=== PATIENT | female | born 1950 | race Hispanic/Latino ===

== ENCOUNTER 2018-10-08 05:45 | Inpatient (IN) | payer MEDICARE, OTHER ==
[2018-10-08] MEDS ORDERED: Albuterol 0.5% Inhal Sol (2.5 mg/0.5 ml) UD IH STA (05:59)
[2018-10-08] MEDS ORDERED: Magnesium Sulfate 1 gm in D5W 1 GM/100 ML BAG IVPB ONE (06:01)
[2018-10-08] MEDS ORDERED: Albuterol 0.083% Inhal Sol (2.5 mg/3 mL) UD INH STA ×2 (06:03→06:50)
[2018-10-08] MEDS ORDERED: Albuterol-Ipratrop 3 mg / 0.5 (3 ml) UD ONE (06:06)
[2018-10-08 06:27] LABS: BASO # 0.01 K/mm3 (0.0-2.0); BASO % 0.2 % (0.0-3.0); EOS # 0.5 (0.0-0.7); EOS % 12.6 % (1.5-5.0); GRAN # 2.21 (1.4-6.5); GRAN % 52.7 % (50.0-68.0); HEMOGLOBIN 13.8 g/dL (12.0-16.0); LYMPH # 1.2 (1.2-3.4); LYMPH % 27.6 % (22.0-35.0); MEAN CELL VOLUME 89.5 fl (80.0-105.0); MEAN CORPUSCULAR HEMOGLOBIN 30.1 pg (25.0-35.0); MEAN CORPUSCULAR HGB CONC 33.6 g/dl (31.0-37.0); MEAN PLATELET VOLUME 10.2 fl (7.0-11.0); MONO # 0.3 (0.1-0.6); MONO % 6.9 % (1.0-6.0); RBC 4.59 10^6/uL (3.5-6.1); RED CELL DISTRIBUTION WIDTH 13.1 % (11.5-14.5); WHITE BLOOD COUNT 4.2 10^3/uL (4.5-11.0)
[2018-10-08 06:35] LABS: INR 1.03; PARTIAL THROMBOPLASTIN TIME 30.3 Seconds (25.1-36.5); PROTHROMBIN TIME 11.9 SECONDS (9.4-12.5); VENOUS BLOOD GAS BASE EXCESS 0.2 mmol/L (0.0-2.0); VENOUS BLOOD GAS PO2 42 mm/Hg (30-55); VENOUS BLOOD PH 7.33 (7.32-7.43)
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
[2018-10-08 06:40] LABS: ALB/GLOB RATIO 1.1 (1.1-1.8); ALBUMIN 4.3 g/dL (3.0-4.8); ALT/SGPT 16 U/L (7-56); AST/SGOT 26 U/L (14-36); BLOOD UREA NITROGEN 24 mg/dL (7-21); CALCIUM 9.4 mg/dL (8.4-10.5); GFR NON-AFRICAN AMERICAN > 60
[2018-10-08 06:48] LABS: B-TYPE NATRIURETIC PEPTIDE 125 pg/mL (0-450)
--- NOTE | 2018-10-08 07:05 | ED PDOC ---
Physical Exam - Physical Exam Narrative Physical Exam (Text): 10/08/18 08:14 Gen: NAD, cooperative, well appearing, non-toxic. CV: (+) S1S2, RRR, no M/G/R LUNGS: Decreased breath sounds. Expiratory wheezing. ext: no cyanosis or edema Vital Signs Reviewed: Yes Vital Signs Temp Pulse Resp BP Pulse Ox 10/08/18 05:55 20 96 10/08/18 05:49 98.9 F 92 H 24 153/85 H 90 L Temperature: Afebrile Blood Pressure: Hypertensive Pulse: Regular Respiratory Rate: Normal Appearance: Positive for: Well-Appearing, Non-Toxic, Comfortable Pain Distress: None Mental Status: Positive for: Alert and Oriented X 3 - Systems Exam Mouth: Present: Moist Mucous Membranes Medical Decision Making ED Course and Treatment: 10/08/18 07:03 Case endorsed to me by Dr. Jamil pending reevaluation. Dr. Jamil reviewed pt's CXR, EKG, and Labs. 10/08/18 08:05 Upon reevaluation, patient's symptoms have not improved after multiple treatments. Patient does not feel like she could go home. 10/08/18 08:26 Patient's PCP is on the blue list. Call put out to Dr. Holm. 10/08/18 08:30 CXR reviewed by me, shows infultrate in rt lower lobe. Report still pending. 10/08/18 09:10 Pt noted her second doctor is Dr. Moulton. Call placed out to Dr. Moulton. 10/08/18 09:[address] Moulton, who is aware and agrees with plan. Accepts pt to her service. Wants call placed to Dr. Salazar. - Lab Interpretations Lab Results: 10/08/18 06:00 10/08/18 06:00 Lab Results 10/08/18 06:00: Sodium 142, Potassium 3.7, Chloride 106, Carbon Dioxide 27, Anion Gap 12, BUN 24 H, Creatinine 0.7, Est GFR ( Amer) > 60, Est GFR (Non-Af Amer) > 60, Random Glucose 115 H, Calcium 9.4, Magnesium 1.9, Total Bilirubin 0.3, AST 26, ALT 16, Alkaline Phosphatase 61, NT-Pro-B Natriuret Pep 125, Total Protein 8.1, Albumin 4.3, Globulin 3.8, Albumin/Globulin Ratio 1.1 10/08/18 06:00: PT 11.9, INR 1.03, APTT 30.3 10/08/18 06:00: WBC 4.2 L, RBC 4.59, Hgb 13.8, Hct 41.1, MCV 89.5, MCH 30.1, MCHC 33.6, RDW 13.1, Plt Count 278, MPV 10.2, Gran % 52.7, Lymph % (Auto) 27.6, Bound[place] % (Auto) 6.9 H, Eos % (Auto) 12.6 H, Baso % (Auto) 0.2, Gran # 2.21, Lymph # (Auto) 1.2, Boundary # (Auto) 0.3, Eos # (Auto) 0.5, Baso # (Auto) 0.01 - RAD Interpretation Radiology Orders: 10/08/18 06:00 CHEST PORTABLE [RAD] Stat - Medication Orders Current Medication Orders: Discontinued Medications Albuterol Sulfate (Albuterol 0.5% Inhal Tamara (2.5 Mg/0.5 Ml) Ud) 2.5 mg IH STAT STA Stop: 10/08/18 06:00 Last Admin: 10/08/18 06:14 Dose: 2.5 mg Albuterol Sulfate (Albuterol 0.083% Inhal Tamara (2.5 Mg/3 Ml) Ud) 2.5 mg INH STAT STA Stop: 10/08/18 06:04 Last Admin: 10/08/18 06:14 Dose: 2.5 mg Albuterol Sulfate (Albuterol 0.083% Inhal Tamara (2.5 Mg/3 Ml) Ud) 2.5 mg INH STAT STA Stop: 10/08/18 06:51 Last Admin: 10/08/18 07:00 Dose: 2.5 mg Magnesium Sulfate/Dextrose (Magnesium Sulfate 1 Gm/100 Ml D5w) 1 gm in 100 mls @ 100 mls/hr IVPB ONCE ONE Stop: 10/08/18 07:00 Last Admin: 10/08/18 06:14 Dose: 100 mls/hr eMAR Start Stop Document 10/08/18 06:14 JOReji (Rec: 10/08/18 06:14 JOReji [id number]) Intravenous Solution Start Date 10/08/18 Start Time 06:14 End Date 10/08/18 End time 07:14 Total Infusion Time 60 Methylprednisolone (Solu-Medrol) 125 mg IVP STAT STA Stop: 10/08/18 06:01 Last Admin: 10/08/18 06:13 Dose: 125 mg IVP Administration Document 10/08/18 06:13 CHRISTOPHER (Rec: 10/08/18 06:13 CHRISTOPHER [id number]) Charges for Administration # of IVP Administrations 1 - Scribe Statement The provider has reviewed the documentation as recorded by the Scribe Catie Verduzco All medical record entries made by the Scribe were at my direction and personally dictated by me. I have reviewed the chart and agree that the record accurately reflects my personal performance of the history, physical exam, medical decision making, and the department course for this patient. I have also personally directed, reviewed, and agree with the discharge instructions and disposition. Disposition/Present on Arrival - Present on Arrival Any Indicators Present on Arrival: No History of DVT/PE: No History of Uncontrolled Diabetes: No Urinary Catheter: No History of Decub. Ulcer: No History Surgical Site Infection Following: None - Disposition Have Diagnosis and Disposition been Completed?: Yes Diagnosis: Asthma exacerbation, COPD exacerbation Disposition: HOSPITALIZED Disposition Time: 09:15 Patient Plan: Admission, Telemetry Patient Problems: Current Active Problems Problem Status Onset Asthma exacerbation Acute COPD exacerbation Acute Condition: [facility]
[2018-10-08] MEDS ORDERED: Azithromycin 500MG/NS 250ml 500 MG/250 ML BAG IVPB STA (08:27)
[2018-10-08] MEDS: Albuterol-Ipratrop 3 mg / 0.5 (3 ml) UD IH SCH ×3 (09:23→10:00)
--- NOTE | 2018-10-08 09:30 | CARD ---
APPROVED REPORT Date of service: 10/08/2018 EKG Measurement Heart [id number] <Conclusion> Normal sinus rhythm Left axis deviation/LAHB RVCD PRWP No change
--- NOTE | 2018-10-08 11:17 | RAD ---
Date of service: 10/08/2018 HISTORY: Shortness of breath. COMPARISON: 07/23/2016 FINDINGS: LUNGS: No active pulmonary disease. PLEURA: No significant pleural effusion identified, no pneumothorax apparent. CARDIOVASCULAR: No atherosclerotic calcification present No radiographic findings to suggest acute or significant cardiovascular disease. OSSEOUS STRUCTURES: No significant abnormalities. VISUALIZED UPPER ABDOMEN: Normal. OTHER FINDINGS: None. IMPRESSION: No active disease. No significant interval change compared to the prior examination(s).
[2018-10-08] MEDS: Levalbuterol 1.25 MG/3 ML Inhal Soln UD IH SCH ×2 (14:04→20:34)
[2018-10-08] MEDS: cefTRIAXone 1 gm 1 GM/100 ML BAG IVPB SCH (15:03)
[2018-10-08 15:59] VITALS: BMI 22.3
[2018-10-08] MEDS ORDERED: Pneumococcal 23-Valent Vaccine IM ONE (15:59)
[2018-10-08] MEDS ORDERED: Influenza Vaccine 60 mcg/0.5 mL SYR (4YR UP) IM ONE (15:59)
[2018-10-08] MEDS: MethylPREDNISolone 40 mg Vial IV SCH ×2 (16:26→18:21)
[2018-10-09] MEDS: Levalbuterol 1.25 MG/3 ML Inhal Soln UD IH SCH ×4 (03:22→20:40)
[2018-10-09] MEDS: Albuterol-Ipratrop 3 mg / 0.5 (3 ml) UD IH PRN ×2 (05:18→23:53)
[2018-10-09] MEDS: Pantoprazole 40 mg EC Tab PO SCH (05:30)
[2018-10-09 06:13] LABS: URINE BILIRUBIN NEGATIVE (NEGATIVE); URINE BLOOD MODERATE (NEGATIVE); URINE GLUCOSE (UA) NEGATIVE (NEGATIVE); URINE LEUKOCYTE ESTERASE NEGATIVE Leu/uL (NEGATIVE); URINE PROTEIN NEGATIVE mg/dL (<30 mg/dL); URINE UROBILINOGEN 0.2 E.U./dL (<1 E.U./dL)
[2018-10-09 06:27] LABS: URINE APPEARANCE CLEAR (CLEAR); URINE COLOR YELLOW (YELLOW)
[2018-10-09 06:49] LABS: URINE BACTERIA OCC /hpf; URINE EPITHELIAL CELLS 0 - 2 /hpf (0-5); URINE WBC 0 - 2 /hpf (0-6)
[2018-10-09] MEDS: cefTRIAXone 1 gm 1 GM/100 ML BAG IVPB SCH (10:06)
[2018-10-09] MEDS: MethylPREDNISolone 40 mg Vial IV SCH (10:07)
[2018-10-09 11:17] LABS: ALB/GLOB RATIO 1.1 (1.1-1.8); ALBUMIN 4.2 g/dL (3.0-4.8); ALT/SGPT 19 U/L (7-56); AST/SGOT 26 U/L (14-36); BLOOD UREA NITROGEN 22 mg/dL (7-21); CALCIUM 9.3 mg/dL (8.4-10.5); GFR NON-AFRICAN AMERICAN > 60
[2018-10-09 11:40] LABS: BASO # 0.01 K/mm3 (0.0-2.0); BASO % 0.1 % (0.0-3.0); EOS % 0.3 % (1.5-5.0); GRAN # 5.33 (1.4-6.5); GRAN % 74.9 % (50.0-68.0); HEMOGLOBIN 13.3 g/dL (12.0-16.0); LYMPH # 1.2 (1.2-3.4); LYMPH % 16.3 % (22.0-35.0); MONO # 0.6 (0.1-0.6); MONO % 8.4 % (1.0-6.0); RBC 4.43 10^6/uL (3.5-6.1); RED CELL DISTRIBUTION WIDTH 13.4 % (11.5-14.5); WHITE BLOOD COUNT 7.1 10^3/uL (4.5-11.0)
--- NOTE | 2018-10-09 12:31 | CON ---
DATE: 10/09/2018 PULMONARY CONSULTATION HISTORY OF PRESENT ILLNESS: Ms. Saldana is a 68-year-old female with a longstanding history of bronchial asthma. She sees a primary doctor who is being covered by a second primary doctor who is being covered by Dr. Gold. The patient is anxious that no one knows her care. We have spent some time discussing her case. The patient states that her troubles go back to 09/17 when she had progressive shortness of breath. She was seen in the emergency room and given oral corticosteroids. She has not quite improved over the course of the month, she did not seek additional help. Yesterday she complained of progressive shortness of breath and wheezing. She took her bronchodilators as usual and came to the emergency room for further evaluation and treatment. The patient's chart has been reviewed. The patient was given corticosteroids and antibiotics as discussed above. She is still having episodes of shortness of breath. Since admission last night, the patient states that she is somewhat improved. There is no fever or chills. She does have cough but no expectoration. There is no chest pain. PAST MEDICAL HISTORY: Includes chronic obstructive pulmonary disease, mainly of asthmatic etiology. The patient has a past medical history of hepatitis C, of rib fractures. FAMILY HISTORY: Unknown. SOCIAL HISTORY: The patient does not smoke herself, but is exposed to a large amount of secondhand smoke. No occupational or travel history. No alcohol use. ALLERGIES: RASPBERRIES. HOME MEDICATIONS: Hand nebulizer therapy, fexofenadine, oral cephalosporin, oral corticosteroid. REVIEW OF SYSTEMS: No fever. All negative other than that described above; shortness of breath, cough, exacerbation of bronchial asthma. PHYSICAL EXAMINATION GENERAL: The patient is resting in bed, comfortable, no acute distress. VITAL SIGNS: Afebrile. Temperature 98.6, pulse 80, respiratory rate 18, blood pressure 140/70, O2 sat 96% on supplemental oxygen. NECK: Supple. No jugular venous distention. No bruit. HEART: Regular rhythm. S1, S2 without murmur, gallop or rub. CHEST: Bilateral wheezes noted. Minimal rhonchi noted throughout both lung leon. No rales appreciated. ABDOMEN: Soft. Bowel sounds normoactive without mass, guarding, rebound. No organomegaly. EXTREMITIES: Reveal no clubbing, cyanosis or edema. NEUROLOGIC: Reveals no focal findings. SKIN: Warm but dry. No rash or excoriation. Lymphadenopathy is not present. NEUROLOGIC: No focal findings. LABORATORY STUDIES: Upon admission show a white count of 4200, hemoglobin 13.8, hematocrit 41.1, platelet count 278,000. Sodium 142, potassium 3.7, chloride 106, BUN 24, creatinine 0.7, blood sugar 115. BNP 125. PT/PTT within normal limits. Chest x-ray: No acute changes, no infiltrate or pulmonary vascular congestion. EKG: Sinus rhythm, nonspecific ST-T wave changes. CLINICAL IMPRESSION 1. Respiratory insufficiency. 2. Bronchial asthma. 3. Chronic obstructive pulmonary disease. We will adjust medications accordingly. Once the patient has been stabilized off corticosteroids an IgA and IgE and eosinophil count must be done to rule out eosinophilic asthma. We will need to obtain old records and speak to her primary medical doctor to get a more precise history. We will be happy to follow closely with you once the patient is stabilized. At this point in time we will continue on the current medication orders which include DuoNeb as necessary, ceftriaxone, methylprednisolone 30 mg three times a day, and levalbuterol/Xopenex. We will follow closely with you and decide on the need for further intervention. Thank you. Roberto Breaux MD
--- NOTE | 2018-10-09 13:54 | PN ---
DATE: 10/09/2018 Please note that a white count of 4200 was noted on admission with an eosinophil count of 12.6%. 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 Once she is stabilized, she needs to be followed by Pulmonary in order to obtain such medication. We will discuss this at a further date once the patient is stabilized. IgE level has been requested as well. Roberto Breaux MD
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
[2018-10-10] MEDS: Albuterol-Ipratrop 3 mg / 0.5 (3 ml) UD IH PRN (05:07)
[2018-10-10] MEDS: Budesonide 0.5 mg/2 ml Inhal Susp UD IH SCH ×2 (07:43→21:45)
[2018-10-10] MEDS: Levalbuterol 1.25 MG/3 ML Inhal Soln UD IH SCH ×3 (07:43→21:45)
--- NOTE | 2018-10-10 08:50 | PN ---
DATE: 10/10/2018 SUBJECTIVE: The patient appears comfortable this morning. She is not short of breath at rest. PHYSICAL EXAMINATION: VITAL SIGNS: Temperature 98.6, pulse 79, respirations 18, blood pressure 107/57. Oxygen saturation on nasal cannula is 95%. HEENT: Normocephalic, atraumatic. NECK: No JVD. CARDIOVASCULAR: Positive S1, S2. No S3 gallop. LUNGS: Decreased breath sounds at the bases. Minimal rhonchi. Minimal wheezing. EXTREMITIES: No clubbing, cyanosis or edema. Calves are nontender to palpation. GI: Abdomen is soft, nontender and nondistended. Bowel sounds are positive. SKIN: No acute rash. NEUROLOGIC: Exam limited at the present time. IMPRESSION: 1. Acute bronchitis. 2. Chronic obstructive pulmonary disease. 3. Bronchial asthma. 4. Hypertension. PLAN: The patient appears comfortable this morning. She is not short of breath at rest. She does state to feeling much better overall. I did discuss the case with the night nurse at length. The night nurse stated the patient had a good night. On physical exam, there is mild bronchospasm present. In addition, there is a mild increase in the alveolar-arterial gradient. I will continue the current nebulizer treatments and low-dose intravenous steroids foe now. However, I will also add inhaled Pulmicort this morning. The patient is also on oral antibiotic therapy. There are no temperatures noted. There is no leukocytosis. Clinical status of the patient certainly appears improved. I will discuss the above with the attending physician. Obie Springer MD MTDSandra
--- NOTE | 2018-10-10 09:09 | HP ---
DATE OF EXAM: 10/08/2018 HISTORY OF PRESENT ILLNESS: The patient is 68 years old. She states on 09/17/2018, when she was babysitting her grandson in [place], she started to have shortness of breath that was her usual asthma. When her shortness of breath got worse, ambulance was called and she was taken to the local hospital in [place]. She remained there for a day or two. She was discharged home on cefuroxime 500 twice a day and she was told she has touch of pneumonia, so she finished her antibiotics. Two days ago, she had to attend a when she came out with . When she reached home, she started to have cough, congestion, shortness of breath again it had got worse to the point she was unable to breathe, so daughter called ambulance and she was brought to emergency room. PAST MEDICAL HISTORY: She has significant past medical history of COPD and asthmatic bronchitis. She was admitted with similar complaint in 2016. Denies any fever or chills. Denies any nausea or vomiting. No abdominal pain. ALLERGIES: SHE IS ALLERGIC TO RASPBERRIES. MEDICATIONS AT HOME: She is on Advair, she is on fluticasone, and she takes Melanie as needed. SOCIAL HISTORY: Denies smoking, drinking, and no alcohol use. REVIEW OF SYSTEMS: Significant for being anxious, short of breath and complain of tracheal mucus. PHYSICAL EXAMINATION: GENERAL: She is awake, alert, oriented, able to communicate, has mild shortness of breath. VITAL SIGNS: She is afebrile. Pulse 105, respirations 24, blood pressure 140/74. LUNGS: Bilateral expiratory rhonchi. HEART: S1 and S2 audible. ABDOMEN: Soft and nontender. No rebound. No guarding. NEUROLOGIC: The patient is awake, alert, oriented, communicative. LABORATORY EXAM: WBC is 4.2, hemoglobin 13, hematocrit 41 and platelets 278. PT 11.9, INR is 1.03. Chemistry; sodium 142, potassium 3.7, chloride 106, CO2 of 27, BUN 24, creatinine 0.7, blood sugar 115. ASSESSMENT: 1. Chronic obstructive pulmonary disease exacerbation. 2. Asthmatic bronchitis. 3. History of hypertension. 4. History of hepatitis C. 5. Hyperlipidemia. PLAN: We will start the patient on nebulizer treatment. We will start her on IV steroid. We will put her on GI prophylaxis. We will start her on Rocephin. We will evaluate the patient in a.m. and pulmonary consult has been requested. Angel Luis Moulton MD
[2018-10-10] MEDS: Cefpodoxime (Vantin) 200 mg Tab PO SCH ×2 (09:24→21:46)
[2018-10-10] MEDS ORDERED: MethylPREDNISolone 40 mg Vial IV SCH ×2 (10:00→18:00)
--- NOTE | 2018-10-10 13:46 | CT ---
Date of service: 10/10/2018 PROCEDURE: CT Chest without contrast HISTORY: sob COMPARISON: 07/24/2016 TECHNIQUE: Contiguous axial images were obtained through the chest without intravenous contrast enhancement. Sagittal and coronal reconstructions were performed. Radiation dose: Total exam DLP = 195.87 mGy-cm. This CT exam was performed using one or more of the following dose reduction techniques: Automated exposure control, adjustment of the mA and/or kV according to patient size, and/or use of iterative reconstruction technique. FINDINGS: LUNGS: There is a small 5 mm nodule in the right upper lobe anteriorly. There is also some nodular scarring at the junction of the right major fissure and lateral pleura. The lungs are otherwise clear MEDIASTINUM: Unremarkable thoracic aorta. No aneurysm. Normal sized heart. Main pulmonary artery unremarkable. No vascular congestion. Mildly enlarged mediastinal lymph nodes are seen. There is a 12 mm pretracheal lymph node. No aortic atherosclerotic calcification. PLEURA: No pleural fluid. No pneumothorax. BONES: No fracture. No destructive lesion. UPPER ABDOMEN: Grossly unremarkable. OTHER FINDINGS: None. IMPRESSION: No acute intrathoracic findings
--- NOTE | 2018-10-10 16:04 | PN ---
DATE: 10/10/2018 SUBJECTIVE: The patient is 68-year-old, seen and examined. She has cough, congestion, get short of breath even walking to the bathroom. PHYSICAL EXAMINATION: VITAL SIGNS: She is afebrile, pulse 75, respiration 20 and blood pressure 113/70. LUNGS: Bilateral expiratory rhonchi, more pronounced posteriorly. HEART: S1 and S2, audible. ABDOMEN: Soft and nontender. No rebound. No guarding. NEUROLOGICAL: The patient is awake, alert, oriented, able to communicate and ambulatory. EXTREMITIES: Bilateral leg no edema. LABORATORY DATA: There is no new lab available today. Blood cultures are negative. ASSESSMENT: 1. Chronic obstructive pulmonary disease, exacerbation. 2. Asthmatic bronchitis. 3. Bronchospasm. 4. Hypertension. PLAN: I will increase her steroid to 30 every 12 hours. I also ordered for CT of the chest to see if there is any underlying pneumonia. We will followup the patient in a.m. Angel Luis Moulton MD
[2018-10-11] MEDS: Levalbuterol 1.25 MG/3 ML Inhal Soln UD IH SCH ×4 (03:45→21:08)
[2018-10-11] MEDS: Budesonide 0.5 mg/2 ml Inhal Susp UD IH SCH ×2 (07:39→21:08)
--- NOTE | 2018-10-11 08:16 | PN ---
DATE: 10/11/2018 SUBJECTIVE: The patient appears very comfortable this morning. She is not short of breath at rest. PHYSICAL EXAMINATION: VITAL SIGNS: (Last noted in the computer): Temperature 97, pulse 75, respirations 18/20, blood pressure 113/70. Oxygen saturation on nasal cannula is 97%. HEENT: Normocephalic, atraumatic. No JVD. CARDIOVASCULAR: Positive S1, S2. No S3 gallop. LUNGS: Improved breath sounds at the bases. Very minimal/much less rhonchi. No wheezing. EXTREMITIES: No clubbing, cyanosis or edema. Calves are nontender to palpation. GASTROINTESTINAL: Abdomen is soft, nontender and nondistended. Bowel sounds are positive. SKIN: No acute rash. NEUROLOGIC: Exam limited at the present time. PERTINENT LABORATORY DATA: CAT scan of the chest was done yesterday and reviewed. There is a very small (5 mm) nodule in the right upper lobe anteriorly. There is also some nodular scarring near the right major fissure. The lungs are otherwise clear. There is no significant lymphadenopathy.. IMPRESSION: 1. Acute bronchitis. 2. Chronic obstructive pulmonary disease. 3. Bronchial asthma. 4. Small pulmonary nodule, right upper lobe. PLAN: The patient appears very comfortable this morning. She is not short of breath at rest. She does state to feeling much better overall. I did discuss the case with the night nurse at length. The night nurse stated that the patient had a very good night, but does get very anxious at times. On physical exam, the patient's bronchospasm continues to resolve. In addition, the alveolar-arterial gradient also continues to resolve. I will continue the current nebulizer treatments and decrease the intravenous steroids this morning. The patient also remains on oral antibiotic therapy. There are no temperatures noted. There is no leukocytosis. Clinical status of the patient is certainly improved - compared to the initial presentation. I will discuss the above with the attending physician. Obie Springer MD MTDSandra
[2018-10-11] MEDS: MethylPREDNISolone 40 mg Vial IVP SCH ×2 (09:33→21:25)
[2018-10-11] MEDS: Cefpodoxime (Vantin) 200 mg Tab PO SCH ×2 (09:33→21:25)
--- NOTE | 2018-10-11 19:11 | PN ---
DATE: 10/11/2018 SUBJECTIVE: The patient is a 68-year-old, seen and examined, sitting in chair, still complains of cough, complains of difficulty swallowing at time with big bolus or hard food and make her choke. PHYSICAL EXAMINATION: VITAL SIGNS: She is afebrile, pulse 80, respirations 18, and blood pressure 129/71. LUNGS: Bilateral fair airflow. Few expiratory rhonchi posteriorly. HEART: S1 and S2 audible. ABDOMEN: Soft and nontender. No rebound. No guarding. NEUROLOGIC: The patient is awake, alert, oriented, and communicative. EXTREMITIES: Moves all extremities. LABORATORY DATA: There is no new lab available. CT scan of the chest done that shows no acute intrathoracic findings. ASSESSMENT: 1. Chronic obstructive pulmonary disease exacerbation. 2. Asthmatic bronchitis. 3. Pharyngitis. 4. History of hypertension. PLAN: We will continue the patient on steroids. Continue antibiotics. I will get swallowing evaluation because the patient complaint of intermittent choking with certain foods and also add Mucomyst, so she can better. Get swallowing eval and add Mucomyst. Angel Luis Moulton MD
[2018-10-11] MEDS: Acetylcysteine 20% Inhal Soln (4ml) IH SCH (21:08)
[2018-10-12] MEDS: Levalbuterol 1.25 MG/3 ML Inhal Soln UD IH SCH ×5 (00:41→21:08)
[2018-10-12] MEDS: Acetylcysteine 20% Inhal Soln (4ml) IH SCH ×3 (07:55→21:08)
[2018-10-12] MEDS: Budesonide 0.5 mg/2 ml Inhal Susp UD IH SCH ×2 (07:56→21:08)
--- NOTE | 2018-10-12 09:40 | PN ---
DATE: 10/12/2018 PULMONARY NOTE SUBJECTIVE: The patient appears very comfortable at rest. She is not short of breath. PHYSICAL EXAMINATION: VITAL SIGNS: (Last noted in the computer): Temperature is 98.0, pulse 77, respirations 18, blood pressure 133/88 and oxygen saturation on nasal cannula is 92%. HEENT: Normocephalic and atraumatic. No JVD. CARDIOVASCULAR: Positive S1 and S2. No S3 gallop. LUNGS: Minimal/less rhonchi. No wheezing. EXTREMITIES: No clubbing, cyanosis or edema. Calves are nontender to palpation. GI: Abdomen is soft, nontender and nondistended. Bowel sounds are positive. SKIN: No acute rash. NEUROLOGIC: Exam limited at the present time. IMPRESSION: 1. Acute bronchitis. 2. Chronic obstructive pulmonary disease. 3. Bronchial asthma. 4. Small pulmonary nodule - right upper lobe. PLAN: The patient appears very comfortable this morning. She is not short of breath at rest. She is less dyspneic on exertion. She does state to feeling much better overall. On physical exam, her bronchospasm continues to slowly resolve. However, there remains a mild increase in the alveolar-arterial gradient. I will continue the current nebulizer treatments and low-dose intravenous steroids (decreased yesterday) for now. Clinical status of the patient is significantly improved - compared to the initial presentation. However, it does appear that her chronic obstructive pulmonary disease may be advanced. I would like to obtain a PFT when she is over this exacerbation. I will discuss the above with the attending physician. Obie Springer MD DEREK
[2018-10-12] MEDS: MethylPREDNISolone 40 mg Vial IVP SCH ×2 (10:07→21:25)
[2018-10-12] MEDS: Cefpodoxime (Vantin) 200 mg Tab PO SCH ×2 (10:09→21:25)
[2018-10-12] MEDS: Fluticasone Nasal 50 mcg/Spray NS SCH (13:45)
[2018-10-12] MEDS ORDERED: Acetylcysteine 20% Inhal Sol (30ml) IH SCH (14:00)
--- NOTE | 2018-10-12 15:58 | CP.PCM.APN ---
Subjective - Date & Time of Evaluation Date of Evaluation: 10/12/18 Time of Evaluation: 11:00 - Subjective Subjective: patient seen and examined, observed to be walking across the room, no dyspnea noted, States feels like phlegm after coughing episodes remain in her throat. Denied any dysphagia, ate full breaknfast without difficulty. Per nurse, King tte, heard patient wheezing earlier. Patients states her breathing feels much better. Review of Systems - Constitutional Constitutional: As Per HPI - Respiratory Respiratory: Cough, Pain with Coughing Objective - Vital Signs/Intake and Output Vital Signs (last 24 hours): Temp Pulse Resp BP Pulse Ox 98.3 F 76 18 131/83 96 10/12/18 14:00 10/12/18 14:00 10/12/18 14:00 10/12/18 14:00 10/12/18 14:00 Intake and Output: 10/12/18 10/12/18 06:59 18:59 Intake Total 840 Balance 840 - Medications Medications: Current Medications Acetaminophen (Tylenol 325mg Tab) 650 mg PO Q6H PRN PRN Reason: Fever >100.4 F Acetylcysteine (Acetylcysteine 20%) 4 ml IH TIDRESP [facility] Last Admin: 10/12/18 13:37 Dose: 4 ml Albuterol/Ipratropium (Duoneb 3 Mg/0.5 Mg (3 Ml) Ud) 3 ml IH Q2H PRN PRN Reason: Shortness of Breath Last Admin: 10/10/18 05:07 Dose: 3 ml Budesonide (Pulmicort Respules) 0.5 mg IH [id number] [facility] Last Admin: 10/12/18 07:56 Dose: 0.5 mg Cefpodoxime Proxetil (Vantin) 200 mg PO Q12 [facility] Last Admin: 10/12/18 10:09 Dose: 200 mg Fluticasone Propionate (Flonase) 1 actuation NS DAILY [facility] Last Admin: 10/12/18 13:45 Dose: 50 mcg Levalbuterol HCl (Xopenex) 1.25 mg IH [id number] [facility] Last Admin: 10/12/18 13:37 Dose: 1.25 mg Methylprednisolone (Solu-Medrol) 20 mg IVP Q12 [facility] Last Admin: 10/12/18 10:07 Dose: 20 mg Ondansetron HCl (Zofran Inj) 4 mg IVP Q6H PRN PRN Reason: Nausea/Vomiting Pantoprazole Sodium (Protonix Ec Tab) 40 mg PO 0630 [facility] Last Admin: 10/09/18 05:30 Dose: 40 mg - Labs Labs: 10/09/18 10:50 10/09/18 10:50 PT 11.9 SECONDS (9.4-12.5) 10/08/18 06:00 INR 1.03 10/08/18 06:00 APTT 30.3 Seconds (25.1-36.5) 10/08/18 06:00 - Constitutional Appears: Well, Non-toxic, No Acute Distress - Head Exam Head Exam: NORMAL INSPECTION - Eye Exam Eye Exam: Normal appearance Pupil Exam: NORMAL ACCOMODATION - ENT Exam ENT Exam: Mucous Membranes Moist, Normal Exam - Neck Exam Neck Exam: Full ROM - Respiratory Exam Respiratory Exam: Clear to Ausculation Bilateral, NORMAL BREATHING PATTERN - Cardiovascular Exam Cardiovascular Exam: REGULAR RHYTHM, +S1, +S2 - GI/Abdominal Exam GI & Abdominal Exam: Soft, Normal Bowel Sounds - Rectal Exam Rectal Exam: Deferred - Extremities Exam Extremities Exam: Full ROM, Normal Inspection - Back Exam Back Exam: Full ROM, NORMAL INSPECTION - Neurological Exam Neurological Exam: Alert, Normal Gait, Oriented x3 - Psychiatric Exam Psychiatric exam: Normal Affect, Normal Mood - Skin Skin Exam: Dry, Intact, Normal Color, Warm Assessment and Plan - Assessment and Plan (Free Text) Assessment: Impressions Chest X-Ray 10/08/18 06:00 IMPRESSION: No active disease. No significant interval change compared to the prior examination(s). Chest CT 10/10/18 12:28 IMPRESSION: No acute intrathoracic findings Laboratory Results WBC 7.1 10^3/uL (4.5-11.0) D 10/09/18 10:50 RBC 4.43 10^6/uL (3.5-6.1) 10/09/18 10:50 Hgb 13.3 g/dL (12.0-16.0) 10/09/18 10:50 Hct 40.3 % (36.0-48.0) 10/09/18 10:50 MCV 91.0 fl (80.0-105.0) 10/09/18 10:50 MCH 30.0 pg (25.0-35.0) 10/09/18 10:50 MCHC 33.0 g/dl (31.0-37.0) 10/09/18 10:50 RDW 13.4 % (11.5-14.5) 10/09/18 10:50 Plt Count 315 10^3/uL (120.0-450.0) 10/09/18 10:50 MPV 10.0 fl (7.0-11.0) 10/09/18 10:50 Gran % 74.9 % (50.0-68.0) H 10/09/18 10:50 Lymph % (Auto) 16.3 % (22.0-35.0) L 10/09/18 10:50 [place] % (Auto) 8.4 % (1.0-6.0) H 10/09/18 10:50 Eos % (Auto) 0.3 % (1.5-5.0) L 10/09/18 10:50 Baso % (Auto) 0.1 % (0.0-3.0) 10/09/18 10:50 Gran # 5.33 (1.4-6.5) 10/09/18 10:50 Lymph # (Auto) 1.2 (1.2-3.4) 10/09/18 10:50 [place] # (Auto) 0.6 (0.1-0.6) 10/09/18 10:50 Eos # (Auto) 0.0 (0.0-0.7) 10/09/18 10:50 Baso # (Auto) 0.01 K/mm3 (0.0-2.0) 10/09/18 10:50 ESR 50 mm/hr (0.0-20.0) H 10/09/18 10:50 PT 11.9 SECONDS (9.4-12.5) 10/08/18 06:00 INR 1.03 10/08/18 06:00 APTT 30.3 Seconds (25.1-36.5) 10/08/18 06:00 pO2 42 mm/Hg (30-55) 10/08/18 06:00 VBG pH 7.33 (7.32-7.43) 10/08/18 06:00 VBG pCO2 51.0 (40-60) 10/08/18 06:00 VBG HCO3 26.9 mmol/l (21-28) 10/08/18 06:00 VBG Total CO2 28.5 mmol.L (22-28) H 10/08/18 06:00 VBG O2 Sat (Calc) 77.4 % (40-65) H 10/08/18 06:00 VBG Base Excess 0.2 mmol/L (0.0-2.0) 10/08/18 06:00 VBG Potassium 3.7 mmol/L (3.6-5.2) 10/08/18 06:00 Sodium 140.0 mmol/L (132-148) 10/08/18 06:00 Chloride 105.0 mmol/L (98-107) 10/08/18 06:00 Glucose 117 mg/dl (65-105) H 10/08/18 06:00 Lactate 1.2 mmol/L (0.7-2.1) 10/08/18 06:00 FiO2 21.0 % 10/08/18 06:00 Sodium 140 mmol/L (132-148) 10/09/18 10:50 Potassium 4.1 mmol/L (3.6-5.0) 10/09/18 10:50 Chloride 105 mmol/L (98-107) 10/09/18 10:50 Carbon Dioxide 27 mmol/L (21-33) 10/09/18 10:50 Anion Gap 12 (10-20) 10/09/18 10:50 BUN 22 mg/dL (7-21) H 10/09/18 10:50 Creatinine 0.6 mg/dl (0.7-1.2) L 10/09/18 10:50 Est GFR ( Amer) > 60 10/09/18 10:50 Est GFR (Non-Af Amer) > 60 10/09/18 10:50 Random Glucose 101 mg/dL (70-110) 10/09/18 10:50 Calcium 9.3 mg/dL (8.4-10.5) 10/09/18 10:50 Magnesium 1.9 mg/dL (1.7-2.2) 10/08/18 06:00 Total Bilirubin 0.3 mg/dL (0.2-1.3) 10/09/18 10:50 AST 26 U/L (14-36) 10/09/18 10:50 ALT 19 U/L (7-56) 10/09/18 10:50 Alkaline Phosphatase 50 U/L (38-126) 10/09/18 10:50 NT-Pro-B Natriuret Pep 125 pg/mL (0-450) 10/08/18 06:00 Total Protein 7.9 g/dL (5.8-8.3) 10/09/18 10:50 Albumin 4.2 g/dL (3.0-4.8) 10/09/18 10:50 Globulin 3.7 gm/dL 10/09/18 10:50 Albumin/Globulin Ratio 1.1 (1.1-1.8) 10/09/18 10:50 Venous Blood Potassium 3.7 mmol/L (3.6-5.2) 10/08/18 06:00 Urine Color Yellow (YELLOW) 10/09/18 05:00 Urine Appearance Clear (CLEAR) 10/09/18 05:00 Urine pH 6.0 (4.7-8.0) 10/09/18 05:00 Ur Specific [place] 1.025 (1.005-1.035) 10/09/18 05:00 Urine Protein Negative mg/dL (<30 mg/dL) 10/09/18 05:00 Urine Glucose (UA) Negative mg/dL (NEGATIVE) 10/09/18 05:00 Urine Ketones Negative mg/dL (NEGATIVE) 10/09/18 05:00 Urine Blood Moderate (NEGATIVE) H 10/09/18 05:00 Urine Nitrate Negative (NEGATIVE) 10/09/18 05:00 Urine Bilirubin Negative (NEGATIVE) 10/09/18 05:00 Urine Urobilinogen 0.2 E.U./dL (<1 E.U./dL) 10/09/18 05:00 Ur Leukocyte Esterase Negative Radha/uL (NEGATIVE) 10/09/18 05:00 Urine RBC 2 - 5 /hpf (0-2) H 10/09/18 05:00 Urine WBC 0 - 2 /hpf (0-6) 10/09/18 05:00 Ur Epithelial Cells 0 - 2 /hpf (0-5) 10/09/18 05:00 Urine Bacteria Occ /hpf (NONE) 10/09/18 05:00 IgE 1871 kU/L (<ut=457) H 10/09/18 10:50 68 y/o F with PMHx of asthma presents with increased SOB upon arrival, admitted with COPD exac, and bronchitis. Pt reports she had woke up in the morning with difficulty breathing & SOB. She had tried her home inhaler prior to arrival, which did not provide adequate relief. She had taken a home nebulizer treatment the night before, and antibiotic at home, with no relief, admitted for further workup and treatment. Plan: 1. COPD exacerbation improved per full stack web developer, recommends to continue duoneb treatment until tommorow, and if remains improved by tommorow, will consider clearance for DC per covering full stack web developer. recommends checkigng Oxygen saturations, 96% today on room air. Will continue to monitor clinical status and follow closely, anticipate DC home tommorow .
--- NOTE | 2018-10-12 17:30 | PN ---
DATE: 10/12/2018 SUBJECTIVE: The patient is a 68-year-old, seen and examined, ambulating, seems to be doing a little better. She states Mucomyst helped her a lot, less cough and congestion. PHYSICAL EXAMINATION: VITAL SIGNS: She is afebrile, pulse 68, respirations 18, and blood pressure 117/68. LUNGS: Bilateral occasional expiratory rhonchi. HEART: S1 and S2 audible. ABDOMEN: Soft and nontender. No rebound. No guarding. NEUROLOGIC: The patient is awake and alert, able to communicate, ambulatory. ASSESSMENT: 1. Asthma exacerbation. 2. Asthmatic bronchitis. 3. Allergic rhinitis. PLAN: We will start her on inhaled steroids and occasional Mucomyst 2 to 3 times a day. We will reevaluate in a.m. If she continues to improve, possible discharge planning in a.m. after switching the steroid to p.o. Angel Luis Moulton MD
[2018-10-12 22:34] VITALS: RESP 20
[2018-10-13] MEDS: Levalbuterol 1.25 MG/3 ML Inhal Soln UD IH SCH ×3 (01:56→14:05)
[2018-10-13] MEDS: Pantoprazole 40 mg EC Tab PO SCH ×2 (05:51→05:52)
[2018-10-13] MEDS: Acetylcysteine 20% Inhal Soln (4ml) IH SCH ×2 (08:05→14:05)
[2018-10-13] MEDS: Budesonide 0.5 mg/2 ml Inhal Susp UD IH SCH (08:05)
--- NOTE | 2018-10-13 08:09 | CON ---
DATE: 10/12/2018 HISTORY OF PRESENT ILLNESS: This 68-year-old female with past medical history of acute asthma, presents with increasing shortness of breath. Patient reports she was awoken up in the morning with difficultly breathing and shortness of breath and tried home inhalers, which did not provide adequate relief. She had taken 2 home nebulized treatments night before sleeping. She denies sick contacts at home. She recently visited [facility] for an asthma exacerbation. She had a CAT scan done on admission, which noted to have no acute pathology. She has infectious disease. No history of menopausal, cardiac disease as stated with history of chronic obstructive pulmonary disease. FAMILY HISTORY: No ENT related disease processes. ALLERGIES: THE PATIENT DOES HAVE ALLERGIES TO RASPBERRIES. MEDICATIONS: She is presently on medications of fexofenadine. PHYSICAL EXAMINATION: VITAL SIGNS: Temperature was 98.9 on admission, pulse 92, respiratory rate 20, blood pressure 153/85, followup of 98.9 as well. Patient is seen now, comfortable in bed. LABORATORY RESULT: 4.2, 13.8, 41.1, 278. Blood sugar 115. Sodium 142, potassium 3.7, chloride 106, carbon dioxide 27, BUN 24, creatinine 0.7, glucose as stated 115. Calcium 9.4, magnesium 1.9, PT 11.9, INR 1.03. A portable chest was noted to be within normal on admission as well. The patient utilizes an albuterol inhaler and a nebulized treatment as well. Routine labs were drawn and have been followed. IMPRESSION: Acute exacerbation of patient's chronic obstructive pulmonary disease/asthma with recurring cough. The patient has had multiple bouts over the last month. She is seen at bedside with a clear voice with no dysphonia and no dysphagia. It was discussed in detail for the patient to follow as an outpatient. No laryngoscopy at this time. The patient tolerated both solid and liquids while examined on conversation. The patient is feeling much, much better after nebulized treatment. RECOMMENDATIONS: Continue nebulized treatment, we will treat as an outpatient and follow up. Card given to her for both ear, history of hearing loss and possible outpatient audiogram and we will follow laryngeal process. Martin Ibarra DO
[2018-10-13] MEDS: MethylPREDNISolone 40 mg Vial IVP SCH (10:14)
[2018-10-13] MEDS: Fluticasone Nasal 50 mcg/Spray NS SCH (10:14)
[2018-10-13] MEDS: Cefpodoxime (Vantin) 200 mg Tab PO SCH (10:14)
--- NOTE | 2018-10-13 11:04 | OP ---
PROCEDURE DATE: 10/13/2018 SUBJECTIVE: The patient is ambulating in the room. She does not appear to be short of breath. She is anxious to be discharged. No further abnormalities are noted subjectively. PHYSICAL EXAMINATION: GENERAL: The patient remains comfortable with no fever. VITAL SIGNS: Her heart rate is 70, respiratory rate 16, blood pressure 140/88, O2 saturation on room air is 96%. HEENT: Normocephalic, atraumatic. NECK: Supple. No jugular venous distension or bruit. CARDIOVASCULAR: Regular rhythm. S1, S2 without murmur, gallop or rub. LUNGS: Essentially clear to percussion and auscultation. ABDOMEN: Soft. Bowel sounds normoactive without mass, guarding, rebound or organomegaly. EXTREMITIES: Reveal no clubbing, cyanosis or edema. NEUROLOGIC: Exam reveals no focal findings. LABORATORY DATA: The patient had a CT of the chest on 10/10/2018 which is now on the computer, the results of which show that there is a small 5 mm nodule in the right upper lobe anteriorly, some nodular scarring is noted. The lungs are otherwise clear. Mediastinum appears to show unremarkable pulmonary arteries with no vascular congestion. There is a pretracheal lymph node that needs following. No additional laboratory data is available. CLINICAL IMPRESSION: 1. Status post bronchitis. 2. Chronic obstructive pulmonary disease. 3. Bronchial asthma. 4. Small pulmonary nodule. 5. Small pulmonary lymph node. PLAN: The patient needs to be followed closely as an outpatient. She needs to be continued on inhaled bronchodilators and corticosteroids. I do not see any reason from a pulmonary point of view that the patient requires further hospitalization at this time. The patient can be changed from nebulizer therapy with DuoNeb and budesonide to a handheld device. Methylprednisolone can be tapered and discontinued. The patient should have appropriate outpatient therapy and followup from a pulmonary standpoint. Acetylcysteine should not be used for thicker secretions as it has clear bronchospastic component. We will be happy to follow closely with you and decide on the need for further intervention. We will discuss at length with Dr. Moulton later this morning. Thank you for the opportunity to care for this patient. Roberto Breaux MD [facility] # [id number]
--- NOTE | 2018-10-13 14:33 | DS ---
HISTORY OF PRESENT ILLNESS: The patient is 68-year-old, came to emergency room because of increase in cough, congestion and shortness of breath. She has audible wheezing, was admitted for asthma exacerbation. She was given IV steroids, IV antibiotics. She seems to do well. Shortness of breath improved. Cough has significantly improved. PHYSICAL EXAMINATION: GENERAL: The patient is awake, alert, oriented, and communicative. VITAL SIGNS: The patient is afebrile, pulse 68, respirations 20, and blood pressure 114/64. LUNGS: Bilateral fair airflow. Occasional expiratory rhonchi. HEART: S1 and S2 audible. ABDOMEN: Soft and nontender. No rebound. No guarding. NEUROLOGIC: The patient is awake, alert, oriented, and communicative. ASSESSMENT AND PLAN: 1. Asthma exacerbation. 2. Questionable dysphagia. The patient was evaluated by ENT and was told to followup in office. 3. Asthma exacerbation. 4. Asthmatic bronchitis 5. Anxiety disorder. PLAN: The patient is being discharged home today on Vantin 200 mg twice a day for 5 days, methylprednisolone 20 mg twice a day for 3 days and 20 mg daily for 5 days and she is given prescription for Pulmicort and she will follow up in the office in a week, then she will instructed to get endoscopy and colonoscopy done as outpatient. Angel Luis Moulton MD
[2018-10-13 14:40] VITALS: BP 126/84; PULSE 74; TEMP 98.6; O2SAT 97
== END 2018-10-13 16:57 | disposition home or self-care (01) | DRG 202 ==
LOC: ED 05:45 → ERH 09:23 → 2RNO 11:45 → 5RSO 10-09 22:56
PROVIDERS: ADMIT Internal Medicine; ATTEND Internal Medicine
PROC: 3E0F7GC Introduction of Other Therapeutic Substance into Respiratory Tract, Via Natural or Artificial Opening (ICD-10-PCS; principal; 2018-10-08)
DX: J45.901 Unspecified asthma with (acute) exacerbation (principal); J44.1 Chronic obstructive pulmonary disease with (acute) exacerbation; J44.0 Chronic obstructive pulmonary disease with (acute) lower respiratory infection; J20.9 Acute bronchitis, unspecified; I10 Essential (primary) hypertension; E78.5 Hyperlipidemia, unspecified; B19.20 Unspecified viral hepatitis C without hepatic coma; R91.1 Solitary pulmonary nodule; R13.10 Dysphagia, unspecified; F41.9 Anxiety disorder, unspecified

== ENCOUNTER 2018-11-19 16:23 | Inpatient (IN) | payer MEDICARE, OTHER ==
[2018-11-19 16:33] VITALS: BMI 22.1
[2018-11-19] MEDS ORDERED: Albuterol-Ipratrop 3 mg / 0.5 (3 ml) UD IH STA (16:33)
[2018-11-19] MEDS ORDERED: Magnesium Sulfate 1 gm in D5W 1 GM/100 ML BAG IVPB ONE (16:33)
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
[2018-11-19] MEDS ORDERED: Albuterol 0.083% Inhal Sol (2.5 mg/3 mL) UD INH STA ×3 (17:32→19:39)
[2018-11-19 17:38] LABS: BASO # 0.01 K/mm3 (0.0-2.0); BASO % 0.1 % (0.0-3.0); EOS # 0.2 (0.0-0.7); EOS % 2.6 % (1.5-5.0); HEMOGLOBIN 14.6 g/dL (12.0-16.0); LYMPH # 1.7 (1.2-3.4); LYMPH % 18.9 % (22.0-35.0); MEAN CELL VOLUME 88.2 fl (80.0-105.0); MEAN CORPUSCULAR HEMOGLOBIN 29.8 pg (25.0-35.0); MEAN CORPUSCULAR HGB CONC 33.8 g/dl (31.0-37.0); MEAN PLATELET VOLUME 9.9 fl (7.0-11.0); MONO # 0.4 (0.1-0.6); MONO % 4.3 % (1.0-6.0); RBC 4.9 10^6/uL (3.5-6.1); RED CELL DISTRIBUTION WIDTH 13.4 % (11.5-14.5); WHITE BLOOD COUNT 8.8 10^3/uL (4.5-11.0)
[2018-11-19 17:55] LABS: VENOUS BLOOD GAS BASE EXCESS 3.4 mmol/L (0.0-2.0); VENOUS BLOOD GAS PO2 53 mm/Hg (30-55); VENOUS BLOOD PH 7.42 (7.32-7.43)
--- NOTE | 2018-11-19 17:55 | RAD ---
Date of service: 11/19/2018 HISTORY: sob COMPARISON: No prior. FINDINGS: LUNGS: Increased and coarsened interstitial markings; rule out sequela of reactive/inflammatory airway disease or viral illness. Probable nipple shadow artifact left CP angle region. Repeat chest x-ray with nipple markers in place could be performed to confirm. Slight blunting both CP angles could be due to chronic pleural thickening PLEURA: No significant pleural effusion identified, no pneumothorax apparent. CARDIOVASCULAR: No aortic atherosclerotic calcification present. Normal cardiac size. OSSEOUS STRUCTURES: ORIF changes right clavicle again noted VISUALIZED UPPER ABDOMEN: Normal. OTHER FINDINGS: None. IMPRESSION: Increased and coarsened interstitial markings; rule out sequela of reactive/inflammatory airway disease or viral illness. Probable nipple shadow artifact left CP angle region. Repeat chest x-ray with nipple markers in place could be performed to confirm. Slight blunting both CP angles could be due to chronic pleural thickening
[2018-11-19 18:01] LABS: ALB/GLOB RATIO 1.3 (1.1-1.8); ALBUMIN 4.6 g/dL (3.0-4.8); ALT/SGPT 14 U/L (7-56); AST/SGOT 34 U/L (14-36); BLOOD UREA NITROGEN 16 mg/dL (7-21); CALCIUM 9.8 mg/dL (8.4-10.5); GFR NON-AFRICAN AMERICAN > 60
[2018-11-19 18:12] LABS: B-TYPE NATRIURETIC PEPTIDE 139 pg/mL (0-450); TROPONIN I < 0.01 ng/mL
[2018-11-19] MEDS ORDERED: Iohexol 350 MG/100 ML VIAL ONE (18:50)
[2018-11-19] MEDS ORDERED: Albuterol-Ipratrop 3 mg / 0.5 (3 ml) UD IH PRN (20:58)
[2018-11-19] MEDS ORDERED: MethylPREDNISolone 40 mg Vial IV SCH (21:00)
[2018-11-19] MEDS ORDERED: Fluticasone Nasal 50 mcg/Spray NS STA (21:06)
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
[2018-11-20] MEDS: Albuterol-Ipratrop 3 mg / 0.5 (3 ml) UD IH SCH ×4 (02:17→19:52)
[2018-11-20] MEDS: Pantoprazole 40 mg EC Tab PO SCH (06:40)
[2018-11-20] MEDS: Budesonide 0.25 mg/2 ml Inhal Susp UD IH SCH ×2 (08:01→19:54)
[2018-11-20] MEDS: Arformoterol 15 mcg/2 ml Inh Sol IH SCH ×2 (08:01→19:52)
--- NOTE | 2018-11-20 11:14 | CARD ---
APPROVED REPORT Date of service: 11/19/2018 EKG Measurement Heart [id number] <Conclusion> Normal sinus rhythm Left axis deviation Incomplete right bundle branch block Nonspecific ST and T wave abnormality Prolonged QT Abnormal ECG
--- NOTE | 2018-11-20 15:09 | CT ---
Date of service: 11/19/2018 PROCEDURE: CT Abdomen and Pelvis. HISTORY: Abdominal pain COMPARISON: Comparison made with CT scan of the chest dated 10/10/2018 which imaged the upper abdomen. TECHNIQUE: Contiguous axial images of the abdomen and pelvis performed following intravenous injection of approximately 100 cc Omnipaque 350 contrast material. Additional 2D sagittal and coronal sagittal reformats generated. Radiation dose: Total exam DLP = 262.55 mGy-cm. This CT exam was performed using one or more of the following dose reduction techniques: Automated exposure control, adjustment of the mA and/or kV according to patient size, and/or use of iterative reconstruction technique. FINDINGS: LOWER THORAX: Mild chronic atelectasis and or scarring changes seen both lung bases including the lingular and middle lobe regions. Heart size is within range of normal. No significant pericardial effusion. LIVER: Unremarkable. No gross lesion or ductal dilatation. Liver exhibits relatively normal size and attenuation pattern without obvious masses collections or calcifications. GALLBLADDER AND BILE DUCTS: Gallbladder is physiologically distended. No evidence of intraluminal gallbladder calculi. Portal and splenic veins are opacified. PANCREAS: Pancreas appears grossly unremarkable. SPLEEN: The spleen exhibits relatively normal size and attenuation pattern. ADRENALS: No obvious adrenal lesions KIDNEYS AND URETERS: Unremarkable. No stone or hydronephrosis. Kidneys demonstrate relatively symmetric nephrograms. No evidence of nephrolithiasis or hydronephrosis. BLADDER: Urinary bladder appears physiologically distended. REPRODUCTIVE: There is an approximately 3.8 x 4.1 cm soft tissue structure in the left aspect of the pelvis which abuts the left posterolateral border of the uterus and anterior rectosigmoid. This could represent a large adnexal mass or possibly a exophytic uterine lesion.. A lesion arising from the rectosigmoid not completely excluded. Clinical correlation and follow-up of pelvic ultrasound recommended... APPENDIX: Appendix not positive typically identified however no obvious inflammatory changes right lower quadrant of the abdomen. BOWEL: Evaluation of the bowel is limited due to the lack of oral contrast material. The stomach is distended with air and a small amount of fluid. Multiple nondistended fluid-filled loops of small bowel are present the. Stool and air seen throughout the large bowel. As mentioned above, there does appear to be a few scattered colonic diverticula along the sigmoid colon. No convincing evidence of acute diverticulitis. PERITONEUM: Unremarkable. No fluid collection. No free air. LYMPH NODES: Unremarkable. No enlarged lymph nodes. VASCULATURE: Unremarkable. No aortic aneurysm. Minor aortic atherosclerotic calcification or mural plaque present. BONES: Mild multilevel degenerative spondylosis of the lower thoracic and lumbar spine. OTHER FINDINGS: None. IMPRESSION: There is an approximately 3.8 x 4.1 cm soft tissue structure in the left aspect of the pelvis which abuts the left posterolateral border of the uterus and anterior rectosigmoid. This could represent a large adnexal mass or possibly a exophytic uterine lesion.. A lesion arising from the the rectosigmoid not completely excluded. Clinical correlation and follow-up of pelvic ultrasound recommended...
--- NOTE | 2018-11-20 19:35 | PN ---
DATE: 11/20/2018 SUBJECTIVE: The patient is a 68-year-old, seen and examined. She says she feels lot better. Less cough. Less short of breath, but when she walks to the bathroom, she gets out of breath, and cannot catchup her breath. PHYSICAL EXAMINATION: VITAL SIGNS: She is afebrile, pulse 92, respiration 20 and blood pressure 143/76. LUNGS: Bilateral fair airflow. No rhonchi or crackle. HEART: S1 and S2, audible. ABDOMEN: Soft and nontender. No rebound. No guarding. NEUROLOGICAL: The patient is awake, alert, oriented and able to communicate. EXTREMITIES: Bilateral leg, no edema. LABORATORY DATA: Flu test is negative. EKG shows normal sinus rhythm, left axis deviation, incomplete right bundle branch block, ST-T wave changes with prolonged QT interval. ASSESSMENT: 1. Chronic obstructive pulmonary disease, exacerbation. 2. Asthmatic bronchitis. 3. Exertional dyspnea. 4. Abnormal electrocardiogram. PLAN: Currently, the patient is on nebulizer treatment. She is on IV steroid. She is on Protonix. I will cut down her steroid. Cardiology input is requested. We will follow up the patient in a.m. Angel Luis Moulton MD
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
[2018-11-20] MEDS ORDERED: MethylPREDNISolone 40 mg Vial IV SCH (22:00)
[2018-11-21] MEDS: Albuterol-Ipratrop 3 mg / 0.5 (3 ml) UD IH SCH ×4 (01:30→19:28)
[2018-11-21] MEDS: Pantoprazole 40 mg EC Tab PO SCH (05:29)
[2018-11-21] MEDS: Arformoterol 15 mcg/2 ml Inh Sol IH SCH ×2 (07:51→19:28)
[2018-11-21] MEDS: Budesonide 0.5 mg/2 ml Inhal Susp UD IH SCH ×2 (08:33→19:28)
[2018-11-21] MEDS: MethylPREDNISolone 40 mg Vial IVP SCH ×2 (10:17→22:14)
--- NOTE | 2018-11-21 11:01 | PN ---
DATE: 11/21/2018 SUBJECTIVE: The patient appears comfortable this morning. She is not short of breath at rest. PHYSICAL EXAMINATION: VITAL SIGNS: Temperature is 98.2, pulse 88, respirations 18/20, blood pressure 111/62. Oxygen saturation on room air is 95%. HEENT: Normocephalic, atraumatic. No JVD. CARDIOVASCULAR: Positive S1, S2. No S3 gallop. LUNGS: Minimal rhonchi bilaterally. No wheezing. EXTREMITIES: No clubbing, cyanosis or edema. Calves are nontender to palpation. GASTROINTESTINAL: Abdomen is soft, nontender and nondistended. Bowel sounds are positive. SKIN: No acute rash. NEUROLOGIC: Exam limited at the present time. IMPRESSION: 1. Acute bronchitis. 2. Chronic obstructive pulmonary disease. 3. Bronchial asthma. 4. Small pulmonary nodule - right upper lobe. PLAN: The patient appears very comfortable this morning. She is not short of breath at rest. She does state to feeling much better overall. On physical exam, there is no significant bronchospasm noted. In addition, there is no significant alveolar-arterial gradient. I will continue the current nebulizer treatments and decrease the intravenous steroids this morning. I will also increase the inhaled steroids this morning. Clinical status of the patient appears significantly improved - compared to the initial presentation. Additional pulmonary intervention will be based on the clinical status of the patient. I will discuss the above with the attending physician. Obie Springer MD MTDD
--- NOTE | 2018-11-21 12:30 | CP.PCM.PCO ---
Physician Communication Note - Physician Communication Note Physician Communication Note: echo and stress test pending, pelvic US pending result
--- NOTE | 2018-11-21 13:29 | PN ---
DATE: 11/21/2018 SUBJECTIVE: The patient is 68-year-old, seen and examined. Feels much better. Less coughs, less shortness of breath. Were able to ambulate without getting short of breath. PHYSICAL EXAMINATION VITAL SIGNS: She is afebrile, pulse 88, respirations 20, and blood pressure 111/62. LUNGS: Bilateral fair airflow. No rhonchi or crackle. HEART: S1 and S2 audible. ABDOMEN: Soft and nontender. No rebound. No guarding. NEUROLOGIC: The patient is awake, alert, oriented, communicative and ambulatory. LABORATORY DATA: Pelvic ultrasound is pending. ASSESSMENT: 1. Status post chronic obstructive pulmonary disease exacerbation. 2. MULTIPLE SEASONAL ALLERGIES. 3. Bronchial asthma. 4. Small right upper lung pulmonary nodule. 5. Hypokaliemia. PLAN: We will continue the patient on current medication. We will taper down her steroid and we will discontinue her telemetry. If the patient remains stable, will discharge plans for the morning. Angel Luis Moulton MD
--- NOTE | 2018-11-21 15:48 | US ---
Date of service: 11/21/2018 PROCEDURE: HISTORY: ovarian mass COMPARISON: CT scan dated 11/19/2018 TECHNIQUE: FINDINGS: The uterus measures 6.2 x 2.6 x 4.1 centimeters. The endometrium measures 5 millimeters with fluid in the endometrial canal. The right ovary measures 2.8 x 2.4 centimeters. The left ovary is not identified. No gross pelvic mass is observed. IMPRESSION: 5 millimeter endometrial canal with intra endometrial fluid. correlate clinically. No gross evidence of pelvic mass.
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
--- NOTE | 2018-11-21 18:17 | CARD ---
APPROVED REPORT Date of service: 11/21/2018 EXAM: Two-dimensional and M-mode echocardiogram with Doppler and color Doppler. INDICATION Dyspnea COPD 2D DIMENSIONS Left Atrium (2D)3.2 (1.6-4.0cm)IVSd1.1 (0.7-1.1cm) LVDd3.4 (3.9-5.9cm)PWd1.0 (0.7-1.1cm) LVDs2.4 (2.5-4.0cm)FS (%) 29.8 % LVEF (%)58.1 (>50%) M-Mode DIMENSIONS Aortic Root3.00 (2.2-3.7cm)Aortic Cusp Exc.2.00 (1.5-2.0cm) Aortic Valve AoV Peak Wyooqxmu397.0cm/Kylie Peak GR.4mmHg Mitral Valve MV E Omyvohml571.0cm/sMV A Zdhgzdbk39.5cm/sE/A ratio1.2 TDI E/Lateral E'0.0E/Medial E'0.0 Tricuspid Valve TR Peak Hskbegsi091np/sRAP [id number] Peak Gr.18mmHg [id number] LEFT VENTRICLE The left ventricle is normal size. There is normal left ventricular wall thickness. The left ventricular function is flxdjlCT-09-90% There is normal LV segmental wall motion. The left ventricular diastolic function is normal. No left ventricle thrombus noted on this study. There is no ventricular septal defect visualized. There is no left ventricular aneurysm. There is no mass noted in the left ventricle. RIGHT VENTRICLE The right ventricle is moderately dilated. There is normal right ventricular wall thickness. Systolic function of RV is mildly to moderately reduced. ATRIA The left atrium size is normal. The right atrium is borderline dilated. The interatrial septum is intact with no evidence for an atrial septal defect. AORTIC VALVE The aortic valve is thickened but opens well. There is trace aortic regurgitation. There is no aortic valvular stenosis. There is no aortic valvular vegetation. MITRAL VALVE The mitral valve is thickened but opens well. Mitral regurgitation is mild. There is no mitral valve stenosis. There is no evidence of mitral valve prolapse. TRICUSPID VALVE The tricuspid valve leaflets are thickened , but open well. There is mild tricuspid regurgitation.RVSP-28 mmof hg. There is no tricuspid valve stenosis. There is no tricuspid valve prolapse or vegetation. PULMONIC VALVE The pulmonary valve is normal in structure. There is no pulmonic valvular regurgitation. There is no pulmonic valvular stenosis. GREAT VESSELS The aortic root is normal in size. The ascending aorta is normal in size. The pulmonary artery is normal. The IVC is normal in size and collapses >50% with inspiration. PERICARDIAL EFFUSION There is no pleural effusion. There is a trace pericardial effusion. <Conclusion> There is normal left ventricular wall thickness. The left ventricular function is bbwikfCB-79-98% The right ventricle is moderately dilated. Systolic function of RV is mildly to moderately reduced. There is trace aortic regurgitation. There is mild tricuspid regurgitation.RVSP-28 mmof hg. The IVC is normal in size and collapses >50% with inspiration. There is a trace pericardial effusion. No vegetation or thjrombus noted.
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
[2018-11-21] MEDS ORDERED: Lidocaine/Prilocaine 2.5%-2.5% Cream (5 gm) TOP PRN (19:05)
[2018-11-22] MEDS: Albuterol-Ipratrop 3 mg / 0.5 (3 ml) UD IH SCH ×3 (04:08→13:19)
[2018-11-22] MEDS: Pantoprazole 40 mg EC Tab PO SCH (06:05)
[2018-11-22 06:56] VITALS: PULSE 75; TEMP 97.5; O2SAT 96
[2018-11-22 07:20] LABS: HEMOGLOBIN 13.1 g/dL (12.0-16.0); LYMPH # 0.8 (1.2-3.4); LYMPH % 11.2 % (22.0-35.0); MEAN CELL VOLUME 91.1 fl (80.0-105.0); MEAN CORPUSCULAR HEMOGLOBIN 29.2 pg (25.0-35.0); MEAN CORPUSCULAR HGB CONC 32.1 g/dl (31.0-37.0); MEAN PLATELET VOLUME 9.7 fl (7.0-11.0); MONO # 0.2 (0.1-0.6); RBC 4.48 10^6/uL (3.5-6.1); RED CELL DISTRIBUTION WIDTH 14.1 % (11.5-14.5); WHITE BLOOD COUNT 6.9 10^3/uL (4.5-11.0)
[2018-11-22 07:39] LABS: ALB/GLOB RATIO 1.3 (1.1-1.8); ALBUMIN 4.1 g/dL (3.0-4.8); ALT/SGPT 9 U/L (7-56); AST/SGOT 22 U/L (14-36); BLOOD UREA NITROGEN 24 mg/dL (7-21); CALCIUM 9.7 mg/dL (8.4-10.5); GFR NON-AFRICAN AMERICAN > 60; HDL CHOLESTEROL 48 mg/dL (29-60)
[2018-11-22] MEDS ORDERED: Aminophylline 25 mg/ml Inj ONE (07:41)
[2018-11-22] MEDS: Budesonide 0.5 mg/2 ml Inhal Susp UD IH SCH (07:45)
[2018-11-22] MEDS: Arformoterol 15 mcg/2 ml Inh Sol IH SCH (07:45)
[2018-11-22 07:48] LABS: LDL CHOLESTEROL 87 mg/dL (0-129)
[2018-11-22 08:07] VITALS: BP 106/99
[2018-11-22] MEDS ORDERED: MethylPREDNISolone 40 mg Vial IVP SCH (10:00)
[2018-11-22] MEDS ORDERED: Fluticasone Nasal 50 mcg/Spray NS SCH (10:00)
[2018-11-22] MEDS ORDERED: guaiFENesin-DM 600-30 mg ER Tab PO SCH (10:30)
--- NOTE | 2018-11-22 12:02 | PN ---
DATE: 11/22/2018 PULMONARY PROGRESS NOTE SUBJECTIVE: The patient appears very comfortable this morning. She is not short of breath at rest. PHYSICAL EXAMINATION: VITAL SIGNS: Temperature is 97.5, pulse 75, respirations 18, blood pressure 106/69. Oxygen saturation on room air is 96%. HEENT: Normocephalic, atraumatic. No JVD. CARDIOVASCULAR: Positive S1, S2. No S3 gallop. LUNGS: Very minimal/less rhonchi. No wheezing. GI: Abdomen is soft, nontender and nondistended. Bowel sounds are positive. EXTREMITIES: No clubbing, cyanosis or edema. Calves are nontender to palpation. SKIN: No acute rash. NEUROLOGIC: Exam limited at the present time. IMPRESSION: 1. Acute bronchitis. 2. Chronic obstructive pulmonary disease. 3. Bronchial asthma. 4. Small pulmonary nodule - right upper lobe. PLAN: The patient appears very comfortable this morning. She is not short of breath at rest. She is ambulating well. She does state to feeling much better overall. On physical exam, her bronchospasm continues to resolve. In addition, the oxygen saturation on room air is now 96%. I will continue the current nebulizer treatments and decrease the intravenous steroids this morning. The patient also complains of a postnasal drip and "feeling" in her throat. I will also start nasal steroids this morning. Clinical status of the patient has significantly improved - compared to the initial presentation. The patient is advised to increase her activity as tolerated. I will discuss the above with the attending physician. Obie Springer MD MTDSandra
[2018-11-22 14:24] VITALS: RESP 16
--- NOTE | 2018-11-22 14:31 | US ---
Date of service: 11/22/2018 HISTORY: r/o l adnexal mass COMPARISON: None available. TECHNIQUE: Transvaginal FINDINGS: UTERUS: Measures 4.8 x 2.2 x 3.3 cm. No mass. Anteverted. ENDOMETRIUM: Endometrial fluid distending endometrium measuring 1 mm single wall thickness.. No mass identified. Nevertheless, considerations include cervical stenosis, endometrial neoplasm, endometrial hyperplasia, etc. Further evaluation is advised. CERVIX: No cervical abnormality identified. RIGHT OVARY: Measures 1.9 x 0.8 x 2.0 cm. No solid mass. Normal flow. LEFT OVARY: Measures 1.8 x 0.8 x 2.0 cm. No solid mass. Normal flow. Solid left adnexal mass adjacent to the ovary, 2.7 x 4.0 x 4.2 cm. Possible ovarian origin not definitively demonstrated. FREE FLUID: No significant free fluid noted. OTHER FINDINGS: None. IMPRESSION: 4.2 cm solid left adnexal mass, possible ovarian origin. Endometrial fluid, nonspecific. Further evaluation is advised.
--- NOTE | 2018-11-22 16:38 | PN ---
DATE: 11/22/2018 REASON FOR CONSULTATION: Cardiac evaluation, admitted with shortness of breath, COPD. SUBJECTIVE: The patient is anxious, no shortness of breath or any palpitation. PHYSICAL EXAMINATION: GENERAL: Not in apparent distress. VITAL SIGNS: Temperature afebrile, heart rate 77, blood pressure 106/99. HEENT: PERRLA. Extraocular muscles intact. NECK: Supple. No carotid bruit or thyromegaly. CHEST: Clear to auscultation. HEART: S1, S2. Regular. ABDOMEN: Soft. EXTREMITIES: Clubbing, cyanosis negative. LABORATORY DATA: Blood workup as follows: WBC 6.9, hemoglobin 13, hematocrit 40.8, platelet count 344. Chemistry showed sodium 130, potassium 4.7, chloride 101, carbon dioxide 28, anion gap of 30, BUN 24, creatinine 0.7. TSH 2.62. IMPRESSION: A 68-year-old female with past medical history significant for chronic obstructive pulmonary disease, asthma, admitted with shortness of breath, also complained of some chest pain. Because of multiple risk factors, coronary artery disease, suggest a stress test and echo today. Last echo, the patient had on 07/25/2016, that showed ejection fraction 58%, right ventricular systolic pressure 18. Last stress test 04/08/2015 normal. The patient is n.p.o. and going for a stress test today. RECOMMENDATIONS: Continue aggressive treatment for acute bronchitis and chronic obstructive pulmonary disease. Further recommendation after the stress test and echo from cardiology point of view. Thank you Dr. Moulton for providing us the opportunity in taking care of the patient, Ary Saldana. Chip Mackay MD
--- NOTE | 2018-11-22 21:14 | DS ---
HISTORY OF PRESENT ILLNESS: The patient is a 68-year-old, seen and examined, came back from stress test, and did well. No chest pain. No shortness of breath. PHYSICAL EXAMINATION: VITAL SIGNS: The patient is afebrile, pulse 75, respirations 18, and blood pressure 106/99. LUNGS: Bilateral good airflow. No rhonchi or crackle. HEART: S1 and S2 audible. ABDOMEN: Soft and nontender. No rebound. No guarding. NEUROLOGICAL: The patient is awake, alert, able to communicate, and ambulatory. LABORATORY DATA: WBC 6.9, hemoglobin 13, hematocrit 40.8, and platelet 344. Chemistry; sodium 138, potassium 4.7, chloride 101, CO2 of 28, BUN 24, creatinine 0.7, and blood sugar of 123. Flu test is negative. ASSESSMENT: 1. Asthma exacerbation. 2. Asthmatic bronchitis. 3. Anxiety disorder. 4. Mild tricuspid regurgitation. PLAN: The patient is being discharge home today. She will resume her medications including Brovana. She will use nebulizer as needed and Flonase as needed. She is on Protonix. She is on Pulmicort. She is on Singulair. Give her tapering dose of steroid, has been called. She will follow up with Dr. Castrejon. She want to follow with him because he is offered her monthly injection for her asthma. Angel Luis Moulton MD
--- NOTE | 2018-11-22 22:17 | CARD ---
APPROVED REPORT Date of service: 11/22/2018 Protocol: LEXISCAN Test Type: Lexiscan Sestamibi Stress Test Attending Physician: Dr. Chip Shepard Referring Physician: Dr. Angel Luis Moulton Test Indications: Chest Pain Height:5 ft 2 in Weight:130lbs Medications: tylenol, duoneb, brovana, pulmicort emla, solumedrol, singulair, zofran Medical History: 68 year old female with h/o htn and COPD Target HR: 152 bpm Resting ECG: RSR. Non Specific ST_T Changes. Resting Heart Rate: 76 bpm Resting Blood Pressure: 132/74mmHg Submaximum (85%): 129 bpm PROCEDURE Pharmacologic stress testing was performed using 0.4mg per 5ml of regadenoson given intravenously over 7-10 seconds. Reversal agent aminophyline 50 mg, given intravenously for Dyspnea. POST EXERCISE Reason for Termination: Protocol completed Target HR: No Max HR: 79 bpm 75% of Maximum Predicted HR: 152 bpm Exercise duration: 00:31 min:sec, 0 Stage Exercise capacity: 1.0METs Max Blood Pressure: 132/74mmHg Blood Pressure response to exercise: normal resting BP - appropriate response Heart Rate response to exercise: appropriate Chest Pain: No, none Angina index: 0 Arrhythmia: No, none ST Change: Yes, No Additional ST_T Changes. Deviation: 0 mm INTERPRETATION Stress EKG Conclusion: IV LEXIISCAN NUCLEAR STRESS TEST NEGATIVE FOR CHEST PAIN AND NEGATIVE FOR ADDITIONAL ST-T CHANGES. NUCLEAR SCAN REPORT PENDING. Signed by Chip Shepard Electronically Approved: 11/22/2018 09:01:42 EXAM: Myocardial Perfusion REST/STRESS Stress Test Type: Pharmacologic Imaging Protocol The imaging protocol used to acquire images was Rest Tc-99m/stress Tc-99m 1 day Rest Spect myocardial perfusion imaging was performed in supine position 45 minutes following the injection of 10.3 mCi of Tc-99 Myoview. At peak stress, the patient was injected intravenously with 30.2mCi of Tc-99 tetrofosmin after an infusion time of 0 minutes and 10 seconds. Gated Stress Spect was performed 65 minutes after intravenous Tc-99 Myoview injection. The images were gated to evaluate regional wall motion and calculate ventricular ejection fraction.Images were reconstructed using backfilter projection method in short horizontal and verticle long axis. Spect slices were generated. LV Perfusion The quality of the study is good. The left ventricle is normal in size. The right ventricle is unremarkable. The lung uptake is normal. The distribution of tracer reveals moderately decreased perfusion involving apical wall on the stress study. The remainder of the LV myocardium is unremarkable. The rest myocardial perfusion study shows no significant change. Wall Motion Wall motion study shows good contractility of the left ventricle. LVEF = 75%. Conclusion 1. Essentially normal SPECT myocardial perfusion study. 2. Fixed, apical defect is most likely due to breast attenuation. 3. Normal gated wall motion of the left ventricle. 4. In comparison with the last study of 04/11/2015, there is no significant change.
== END 2018-11-22 16:20 | disposition home or self-care (01) | DRG 202 ==
LOC: ED 16:23 → ERH 19:58 → 2RSO 23:00 → 5RNO 11-21 15:56
PROVIDERS: ADMIT Internal Medicine; ATTEND Internal Medicine
PROC: 3E0F7GC Introduction of Other Therapeutic Substance into Respiratory Tract, Via Natural or Artificial Opening (ICD-10-PCS; principal; 2018-11-20)
DX: J45.901 Unspecified asthma with (acute) exacerbation (principal); J44.1 Chronic obstructive pulmonary disease with (acute) exacerbation; J44.0 Chronic obstructive pulmonary disease with (acute) lower respiratory infection; J20.9 Acute bronchitis, unspecified; J32.9 Chronic sinusitis, unspecified; I10 Essential (primary) hypertension; E78.5 Hyperlipidemia, unspecified; F41.9 Anxiety disorder, unspecified; R91.1 Solitary pulmonary nodule; E87.6 Hypokalemia; R09.82 Postnasal drip; Z77.22 Contact with and (suspected) exposure to environmental tobacco smoke (acute) (chronic); Z87.01 Personal history of pneumonia (recurrent)

== ENCOUNTER 2019-01-10 05:05 | Inpatient (IN) | payer MEDICARE, OTHER ==
[2019-01-10 05:09] VITALS: BMI 21.2
[2019-01-10] MEDS ORDERED: Albuterol-Ipratrop 3 mg / 0.5 (3 ml) UD IH STA ×2 (05:14→05:18)
[2019-01-10] MEDS ORDERED: Albuterol-Ipratrop 3 mg / 0.5 (3 ml) UD ONE (05:17)
[2019-01-10 05:39] LABS: ALB/GLOB RATIO 1.2 (1.1-1.8); ALBUMIN 4.8 g/dL (3.0-4.8); ALT/SGPT 8 U/L (7-56); AST/SGOT 24 U/L (14-36); BLOOD UREA NITROGEN 14 mg/dL (7-21); GFR NON-AFRICAN AMERICAN > 60
[2019-01-10 05:47] LABS: MEAN CELL VOLUME 89.4 fl (80.0-105.0); MEAN CORPUSCULAR HGB CONC 33.6 g/dl (31.0-37.0); MEAN PLATELET VOLUME 9.7 fl (7.0-11.0); RED CELL DISTRIBUTION WIDTH 13.6 % (11.5-14.5); WHITE BLOOD COUNT 10.4 10^3/uL (4.5-11.0)
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
[2019-01-10 05:57] LABS: INR 1.09; PARTIAL THROMBOPLASTIN TIME 36.1 Seconds (26.9-38.3); PROTHROMBIN TIME 12.3 SECONDS (9.4-12.5)
[2019-01-10 06:42] LABS: ARTERIAL BLOOD GAS HCO3 25.4 mmol/L (21-28); ARTERIAL BLOOD GAS HEMOGLOBIN 13.2 g/dL (11.7-17.4); ARTERIAL BLOOD GAS O2 CAPACITY 18.2 mL/dl (16-24); ARTERIAL BLOOD GAS PCO2 45 mm/Hg (35-45); ARTERIAL BLOOD GAS PH 7.36 (7.35-7.45); ARTERIAL BLOOD GAS TCO2 26.8 mmol.L (22-28)
[2019-01-10] MEDS ORDERED: Albuterol-Ipratrop 3 mg / 0.5 (3 ml) UD IH PRN ×2 (06:53→07:46)
[2019-01-10] MEDS: MethylPREDNISolone 40 mg Vial IVP SCH ×2 (08:01→16:21)
[2019-01-10] MEDS: Budesonide 0.5 mg/2 ml Inhal Susp UD IH SCH ×2 (08:02→20:17)
--- NOTE | 2019-01-10 08:02 | RAD ---
Date of service: 01/10/2019 HISTORY: sob COMPARISON: 11/19/2018 TECHNIQUE: 1 view obtained. FINDINGS: LUNGS: No active pulmonary disease. PLEURA: Minimal blunting of the costophrenic angles. CARDIOVASCULAR: No aortic atherosclerotic calcification present. Normal cardiac size. No pulmonary vascular congestion. OSSEOUS STRUCTURES: No significant abnormalities. VISUALIZED UPPER ABDOMEN: Normal. OTHER FINDINGS: None. IMPRESSION: No active disease.
[2019-01-10] MEDS: Albuterol-Ipratrop 3 mg / 0.5 (3 ml) UD IH SCH ×2 (08:14→16:17)
--- NOTE | 2019-01-10 08:25 | CON ---
DATE OF CONSULTATION: 01/10/2019 PULMONARY CONSULTATION REASON FOR PULMONARY CONSULTATION: Chronic obstructive pulmonary disease. REFERRING PHYSICIAN FOR THIS PULMONARY CONSULTATION: Dr. Moulton. HISTORY OF PRESENT ILLNESS: The patient is a 68-year-old female, with past medical history significant for chronic obstructive pulmonary disease, bronchial asthma, recurrent bronchitis, solitary pulmonary nodule--right upper lobe, who presents to [facility] with a 1-day history of worsening shortness of breath at rest, dyspnea on exertion, and cough. The patient denies sputum production. The patient also denies chest pain, coughing up of blood, or chest pain - brought on with deep respirations. There is no history of temperatures, chills or infectious exposure. There is no history of night sweats, weight loss or appetite change prior to the above events. No history of calf pains. No history of syncope or diaphoresis. No history of recent travel or trauma. REVIEW OF SYSTEMS: No history of nausea, vomiting or diarrhea. No acute urinary symptoms. No new neurologic complaints. Rest of the review of systems is negative. ALLERGIES: ALLERGIES ARE TO LAMICTAL. SOCIAL HISTORY: Negative for tobacco. Negative for alcohol. FAMILY HISTORY: No inheritable diseases. MEDICATIONS: Home medications - only prednisone is listed in the current chart. PHYSICAL EXAMINATION: GENERAL: The patient appears comfortable this morning. She is not short of breath at rest. She is currently on BiPAP. VITAL SIGNS: Temperature is 97.8, pulse 92, respirations 20, blood pressure 125/69. Oxygen saturation on BiPAP is 95%. HEENT: Normocephalic, atraumatic. No JVD. CARDIOVASCULAR: Positive S1, S2. No S3 gallop. LUNGS: Decreased breath sounds at the bases. Bilateral rhonchi and wheezing are appreciated. EXTREMITIES: No clubbing, cyanosis or edema. Calves are nontender to palpation. GASTROINTESTINAL: Abdomen is soft, nontender and nondistended. Bowel sounds are positive. SKIN: No acute rash. NEUROLOGIC: Exam is limited at the present time. PERTINENT LABORATORY DATA: Chest x-ray was done early this morning and reviewed. The chest x-ray is not significantly changed from the previous films. CBC: White count 10.4K, hemoglobin 15, hematocrit 44.7, and platelets of 292,000. Arterial blood gas was done on BiPAP. Results are: PH 7.36, pCO2 of 45, pO2 of 106. Complete metabolic profile: Glucose 125, total protein 8.6. Rest of the metabolic profile is within normal limits. IMPRESSION: 1. Acute bronchitis. 2. Chronic obstructive pulmonary disease. 3. Bronchial asthma. 4. Solitary pulmonary nodule - right upper lobe. PLAN: The patient presents to [facility] with a 1-day history of worsening pulmonary symptoms. I did review the chest x-ray as above. I do not appreciate any new or significant changes - compared to the previous films. I have also reviewed the arterial blood gas. A borderline respiratory acidosis with adequate oxygenation is noted. We will try to transition the patient to nasal cannula this morning - if tolerated. On physical exam, the patient is in [id number] bronchospasm. I will start the patient on DuoNeb treatments, inhaled steroids, and moderate dose intravenous steroids this morning. There is no history of temperatures. There is no leukocytosis. The patient has been on antibiotic therapy in the very recent past. Thus, I will hold off on antibiotic therapy at this point in time. The patient does state to feeling much better this morning - compared to yesterday. She is clinically improved. Additional pulmonary intervention will be based on the clinical status of the patient. I will discuss the above with Dr. Moulton. Thank you very much for this pulmonary consultation. Obie Springer MD DEREK
--- NOTE | 2019-01-10 12:30 | CARD ---
APPROVED REPORT Date of service: 01/10/2019 EKG Measurement Heart [id number] <Conclusion> Sinus tachycardia Possible Left atrial enlargement Left axis deviation Nonspecific ST abnormality Abnormal ECG
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
[2019-01-11] MEDS: MethylPREDNISolone 40 mg Vial IVP SCH ×3 (00:57→22:34)
[2019-01-11] MEDS: Albuterol-Ipratrop 3 mg / 0.5 (3 ml) UD IH SCH ×4 (02:00→19:06)
[2019-01-11] MEDS: Budesonide 0.5 mg/2 ml Inhal Susp UD IH SCH ×2 (07:38→19:06)
--- NOTE | 2019-01-11 09:46 | PN ---
DATE: 01/11/2019 PULMONARY NOTE SUBJECTIVE: The patient appears comfortable this morning. She is not short of breath at rest. OBJECTIVE: VITAL SIGNS: Temperature is 98.1, pulse 93, respirations 18/20, blood pressure 111/60. Oxygen saturation on nasal cannula is 99%. HEENT: Normocephalic, atraumatic. No JVD. CARDIOVASCULAR: Positive S1 and S2. No S3 gallop. LUNGS: Improved breath sounds at the bases. Less rhonchi. Much less wheezing. EXTREMITIES: No clubbing, cyanosis or edema. Calves are nontender to palpation. GASTROINTESTINAL: Abdomen is soft, nontender and nondistended. Bowel sounds are positive. SKIN: No acute rash. NEUROLOGIC: Exam limited at the present time. IMPRESSION: 1. Acute bronchitis. 2. Chronic obstructive pulmonary disease. 3. Bronchial asthma. 4. Solitary pulmonary nodule - right upper lobe. Plan: The patient appears comfortable this morning. She is not short of breath at rest. She does state to feeling better overall. On physical exam, there is certainly less bronchospasm noted. In addition, the oxygen saturation on nasal cannula is now 99%. I will continue the current nebulizer treatments and decrease the intravenous steroids this morning.. Clinical status of the patient is certainly improved - compared to the initial presentation. The patient is advised to be out of bed as much as possible. I will discuss the above with Dr. Moulton. Obie Springer MD MTDSandra
--- NOTE | 2019-01-11 14:22 | PN ---
DATE: 01/11/2019 SUBJECTIVE: The patient is 68 years old, seen and examined, still has some cough and congestion, gets short of breath on minimal exertion. PHYSICAL EXAMINATION: VITAL SIGNS: She is afebrile. Pulse 106, respirations 20, blood pressure . LUNGS: Bilateral few expiratory rhonchi. HEART: S1, S2 audible. ABDOMEN: Soft, nontender, no rebound, no guarding. NEUROLOGIC: The patient is awake and alert. Able to communicate. EXTREMITIES: Bilateral leg, no edema. LABORATORY DATA: WBC 10.4, hemoglobin 15, hematocrit 41, platelet 192. Chemistry; sodium 141, potassium 3.8, chloride 104, CO2 of 26, BUN 14, creatinine 0.6, blood sugar 125. LFTs are within normal limit. ASSESSMENT: 1. Asthma exacerbation. 2. Bronchitis. 3. Right upper lobe solitary nodule. 4. Chronic allergic sinusitis. PLAN: We will discontinue the patient's telemetry she is stable from cardiac point of view continue on IV steroid, continue nebulizer treatment, encourage ambulation. We will reevaluate the patient in a.m. Angel Luis Moulton MD
[2019-01-11] MEDS: Benzocaine/Menthol (Cepacol) Lozenge MT PRN (23:14)
[2019-01-12] MEDS: Albuterol-Ipratrop 3 mg / 0.5 (3 ml) UD IH SCH ×5 (00:51→20:21)
--- NOTE | 2019-01-12 06:09 | CP.PCM.PN ---
Subjective - Date & Time of Evaluation Date of Evaluation: 01/12/19 Time of Evaluation: 06:07 - Subjective Subjective: S: Seen earlier, because I was asked to co-sign order for Cepacol. She complained of sore throat, states she feels better after she received Cepacol. Has no other complaints now. Medical record was reviewed. O:VSS . Not in acute distress. LUNGS: Normal breathing pattern. A:Sore throat. P:Cepacol was ordered. Objective - Vital Signs/Intake and Output Vital Signs (last 24 hours): Temp Pulse Resp BP Pulse Ox 98.3 F 96 H 20 114/66 92 L 01/11/19 22:00 01/11/19 22:00 01/11/19 22:00 01/11/19 22:00 01/11/19 22:00 Intake and Output: 01/11/19 01/12/19 18:59 06:59 Intake Total 420 Balance 420 - Medications Medications: Current Medications Albuterol/Ipratropium (Duoneb 3 Mg/0.5 Mg (3 Ml) Ud) 3 ml IH [id number] [facility] Last Admin: 01/12/19 02:04 Dose: Not Given Albuterol/Ipratropium (Duoneb 3 Mg/0.5 Mg (3 Ml) Ud) 3 ml IH Q2H PRN PRN Reason: Shortness of Breath Last Admin: 01/10/19 20:17 Dose: 3 ml Alprazolam (Xanax) 0.25 mg PO BID PRN; Protocol PRN Reason: Anxiety Stop: 01/17/19 18:01 Benzocaine/Menthol (Cepacol Sore Throat) 1 yvon MT Q2H PRN PRN Reason: Sore Throat Last Admin: 01/11/19 23:14 Dose: 1 yvon Budesonide (Pulmicort Respules) 0.5 mg IH [id number] [facility] Last Admin: 01/11/19 19:06 Dose: 0.5 mg Famotidine (Pepcid) 20 mg PO DAILY [facility] Loratadine (Claritin) 10 mg PO DAILY [facility] Last Admin: 01/11/19 13:19 Dose: 10 mg Methylprednisolone (Solu-Medrol) 40 mg IVP Q12 [facility] Last Admin: 01/11/19 22:34 Dose: 40 mg Montelukast Sodium (Singulair) 10 mg PO HS [facility] Last Admin: 01/11/19 22:34 Dose: 10 mg - Labs Labs: 01/10/19 05:20 01/10/19 05:20 PT 12.3 SECONDS (9.4-12.5) 01/10/19 05:20 INR 1.09 01/10/19 05:20 APTT 36.1 Seconds (26.9-38.3) 01/10/19 05:20
[2019-01-12] MEDS: Budesonide 0.5 mg/2 ml Inhal Susp UD IH SCH ×2 (08:21→20:21)
--- NOTE | 2019-01-12 09:10 | PN ---
DATE: 01/12/2019 PULMONARY PROGRESS NOTE SUBJECTIVE: The patient appears comfortable this morning. She is not short of breath at rest. PHYSICAL EXAMINATION VITAL SIGNS: (Last noted in the computer); temperature is 98.3, pulse 96, respirations 18/20, blood pressure 114/66. Oxygen saturation on room air - 92%. Oxygen saturation on nasal cannula - 99%. HEENT: Normocephalic, atraumatic. No JVD. CARDIOVASCULAR: Positive S1, S2. No S3 gallop. LUNGS: Less rhonchi bilaterally. No wheezing this morning. GASTROINTESTINAL: Abdomen is soft, nontender and nondistended. Bowel sounds are positive. EXTREMITIES: No clubbing, cyanosis or edema. Calves are nontender to palpation. SKIN: No acute rash. NEUROLOGIC: Limited at the present time. IMPRESSION 1. Acute bronchitis. 2. Chronic obstructive pulmonary disease. 3. Bronchial asthma. 4. Solitary pulmonary nodule - right upper lobe. PLAN: The patient appears comfortable this morning. She is not short of breath at rest. She does state to feeling better overall. However, the patient does complain of persistent dyspnea--basically with any exertion. On physical exam, there is certainly less bronchospasm noted. However, there does remain a mild alveolar-arterial gradient. I will continue the current nebulizer treatments and decrease the intravenous steroids this morning. I would certainly like to see the patient less dyspneic - prior to changing to oral therapy. Hopefully, we can change to oral therapy in the next 24 to 48 hours. The patient is certainly clinically improved overall. However, given the above, the future status/prognosis for this patient does remain somewhat guarded. I will discuss the above with Dr. Moulton. Obie Springer MD MTDD
[2019-01-12] MEDS: MethylPREDNISolone 40 mg Vial IVP SCH ×2 (10:15→21:21)
[2019-01-12] MEDS: Benzocaine/Menthol (Cepacol) Lozenge MT PRN ×4 (10:15→21:21)
--- NOTE | 2019-01-12 12:33 | CP.PCM.APN ---
Subjective - Date & Time of Evaluation Date of Evaluation: 01/12/19 Time of Evaluation: 11:45 - Subjective Subjective: pt seen and examined at beside, pt sitting up in the chair, states she feels better than yeserday but still has cough and " cannot cath her breath" with any little activity. she report MARIE. Review of Systems - Respiratory Respiratory: Cough, Dyspnea, Dyspnea on Exertion Objective - Vital Signs/Intake and Output Vital Signs (last 24 hours): Temp Pulse Resp BP Pulse Ox 98 F 75 18 117/70 97 01/12/19 06:00 01/12/19 06:00 01/12/19 06:00 01/12/19 06:00 01/12/19 06:00 Intake and Output: 01/12/19 01/12/19 06:59 18:59 Intake Total 420 Balance 420 - Medications Medications: Current Medications Albuterol/Ipratropium (Duoneb 3 Mg/0.5 Mg (3 Ml) Ud) 3 ml IH [id number] [facility] Last Admin: 01/12/19 08:21 Dose: 3 ml Albuterol/Ipratropium (Duoneb 3 Mg/0.5 Mg (3 Ml) Ud) 3 ml IH Q2H PRN PRN Reason: Shortness of Breath Last Admin: 01/10/19 20:17 Dose: 3 ml Alprazolam (Xanax) 0.25 mg PO BID PRN; Protocol PRN Reason: Anxiety Stop: 01/17/19 18:01 Benzocaine/Menthol (Cepacol Sore Throat) 1 yvon MT Q2H PRN PRN Reason: Sore Throat Last Admin: 01/12/19 10:15 Dose: 1 yvon Budesonide (Pulmicort Respules) 0.5 mg IH [id number] [facility] Last Admin: 01/12/19 08:21 Dose: 0.5 mg Famotidine (Pepcid) 20 mg PO DAILY [facility] Last Admin: 01/12/19 10:15 Dose: 20 mg Loratadine (Claritin) 10 mg PO DAILY [facility] Last Admin: 01/12/19 10:15 Dose: 10 mg Methylprednisolone (Solu-Medrol) 30 mg IVP Q12 [facility] Last Admin: 01/12/19 10:15 Dose: 30 mg Montelukast Sodium (Singulair) 10 mg PO HS [facility] Last Admin: 01/11/19 22:34 Dose: 10 mg Sodium Chloride ([place] Nasal [place]) 0 ml NS Q2H [facility] - Labs Labs: 01/10/19 05:20 01/10/19 05:20 PT 12.3 SECONDS (9.4-12.5) 01/10/19 05:20 INR 1.09 01/10/19 05:20 APTT 36.1 Seconds (26.9-38.3) 01/10/19 05:20 - Constitutional Appears: No Acute Distress - Head Exam Head Exam: NORMAL INSPECTION, NORMOCEPHALIC - Eye Exam Eye Exam: Normal appearance Pupil Exam: NORMAL ACCOMODATION - Respiratory Exam Respiratory Exam: Decreased Breath Sounds, NORMAL BREATHING PATTERN - Cardiovascular Exam Cardiovascular Exam: +S1, +S2 - GI/Abdominal Exam GI & Abdominal Exam: Soft, Normal Bowel Sounds - Exam External exam: NORMAL EXTERNAL EXAM - Extremities Exam Extremities Exam: Full ROM, Normal Capillary Refill Additional comments: Moves all extremities - Psychiatric Exam Psychiatric exam: Normal Affect, Normal Mood - Skin Skin Exam: Dry, Intact Assessment and Plan - Assessment and Plan (Free Text) Plan: ITS Impressions Chest X-Ray 01/10/19 05:15 IMPRESSION: No active disease. 68 yr old Citizen Of [place] female with pmh sig for asthma, pul nodule, bronchitis, copd now admitted with complaints of cough and MARIE. Pt with ongoing pul eval with Dr Springer. Pt continues with treatment for acute copd exacerbation on IV steriods being tapered down but still with cough and Dypsnea on exertion. All Active Problems COPD exacerbation (Acute) Asthma exacerbation (Acute) Status asthmaticus (Acute) will continue to follow clinical course and disscuss with IDT. BPCI/TIC - BPCIA/TIC Educated pt/family on BPCIA/CIR/Med to Bed Programs: Yes Flyers given, including [facility] Beneficiary letter: Yes Pt/family verbalized understanding & agreed to program: Yes
--- NOTE | 2019-01-12 14:20 | PN ---
DATE: 01/12/2019 SUBJECTIVE: The patient is 68-year-old, seen and examined. Still complaint of congestion, wheezing, dry nose, mucous strip in the back of the throat and multiple complaints. PHYSICAL EXAMINATION: VITAL SIGNS: She is afebrile. Pulse 75, respiration 18 and blood pressure 117/70. LUNGS: Bilateral fair airflow. Bilateral rhonchi more pronounced on the back. HEART: S1 and S2, audible. ABDOMEN: Soft and nontender. No rebound. No guarding. NEUROLOGIC: The patient is awake, alert and able to communicate. Ambulatory. EXTREMITIES: Bilateral leg no edema. ASSESSMENT: 1. Asthma, exacerbation. 2. Allergic rhinitis. 3. Anxiety disorder. PLAN: I will add saline mist. Continue on IV steroid. Continue on GI prophylaxis. Reevaluate in a.m. and discharge plan sooner in a day . Angel Luis Moulton MD
[2019-01-13] MEDS: Albuterol-Ipratrop 3 mg / 0.5 (3 ml) UD IH SCH ×4 (01:17→19:24)
[2019-01-13] MEDS: Budesonide 0.5 mg/2 ml Inhal Susp UD IH SCH ×2 (07:35→19:24)
--- NOTE | 2019-01-13 09:42 | PN ---
DATE: 01/13/2019 PULMONARY NOTE SUBJECTIVE: The patient appears comfortable this morning. She is not short of breath at rest. PHYSICAL EXAMINATION: VITALS: (last noted in the computer): Temperature is 98.4, pulse 73, respirations 18, blood pressure 115/69. Oxygen saturation on room air 93-94%. HEENT: Normocephalic, atraumatic. No JVD. CARDIOVASCULAR: Positive S1, S2. No S3 gallop. LUNGS: Still with mild rhonchi bilaterally. No wheezing. EXTREMITIES: No clubbing, cyanosis, or edema. Calves are nontender to palpation. GASTROINTESTINAL: Abdomen is soft, nontender, and nondistended. Bowel sounds are positive. SKIN: No acute rash. NEUROLOGIC: Exam limited at the present time. IMPRESSION: 1. Acute bronchitis. 2. Chronic obstructive pulmonary disease. 3. Bronchial asthma. 4. Solitary pulmonary nodule - right upper lobe. 5. Acute sinusitis. PLAN: The patient appears comfortable this morning. She is not short of breath at rest. She does state to feeling much better overall. However, again, the patient does still complain of persistent dyspnea with exertion. She also now complains of significant nasal congestion with nasal drip, which "chokes her". On physical exam, mild bronchospasm persists. In addition, a mild increase in the alveolar-arterial gradient also persists. Oxygen saturation on room air-- at rest-- is 93-94%. The patient will be ambulated on room air this morning - check saturations--discussed with nurse. The patient does certainly appear improved overall. She does have new nasal complaints this morning. I will change from [place] spray to nasal steroids (Flonase) this morning. I will also continue the current nebulizer treatments and intravenous steroids for now. Hopefully, we can change to oral therapy in the next 24 hours. I will discuss the above with the attending physician. Obie Springer MD MTDSandra
[2019-01-13] MEDS: MethylPREDNISolone 40 mg Vial IVP SCH ×2 (10:01→21:07)
[2019-01-13] MEDS: Fluticasone Nasal 50 mcg/Spray NS SCH (10:01)
[2019-01-13] MEDS: Benzocaine/Menthol (Cepacol) Lozenge MT PRN ×4 (10:01→22:54)
--- NOTE | 2019-01-13 10:32 | CP.PCM.PN ---
<Chandrika Cross - Last Filed: 01/13/19 11:53> Subjective - Date & Time of Evaluation Date of Evaluation: 01/13/19 Time of Evaluation: 08:00 - Subjective Subjective: IM Resident progress note for Dr. Baldwin covering with Dr. Moulton's service Patient with no acute events overnight night. States she's still coughing. Denies cp, no SOB. No fever or chills. Admits to sinus pressure and sore throat. Objective - Vital Signs/Intake and Output Vital Signs (last 24 hours): Temp Pulse Resp BP Pulse Ox 98.1 F 68 20 126/71 93 L 01/13/19 06:00 01/13/19 06:00 01/13/19 06:00 01/13/19 06:00 01/13/19 06:00 Intake and Output: 01/13/19 01/13/19 06:59 18:59 Intake Total 1100 Output Total 3 Balance 1097 - Medications Medications: Current Medications Albuterol/Ipratropium (Duoneb 3 Mg/0.5 Mg (3 Ml) Ud) 3 ml IH [id number] [facility] Last Admin: 01/13/19 07:35 Dose: 3 ml Albuterol/Ipratropium (Duoneb 3 Mg/0.5 Mg (3 Ml) Ud) 3 ml IH Q2H PRN PRN Reason: Shortness of Breath Last Admin: 01/10/19 20:17 Dose: 3 ml Alprazolam (Xanax) 0.25 mg PO BID PRN; Protocol PRN Reason: Anxiety Stop: 01/17/19 18:01 Benzocaine/Menthol (Cepacol Sore Throat) 1 yvon MT Q2H PRN PRN Reason: Sore Throat Last Admin: 01/13/19 10:01 Dose: 1 yvon Budesonide (Pulmicort Respules) 0.5 mg IH [id number] [facility] Last Admin: 01/13/19 07:35 Dose: 0.5 mg Famotidine (Pepcid) 20 mg PO DAILY [facility] Last Admin: 01/13/19 10:01 Dose: 20 mg Fluticasone Propionate (Flonase) 1 actuation NS DAILY [facility] Last Admin: 01/13/19 10:01 Dose: 1 spray Loratadine (Claritin) 10 mg PO DAILY [facility] Last Admin: 01/13/19 10:01 Dose: 10 mg Methylprednisolone (Solu-Medrol) 30 mg IVP Q12 [facility] Last Admin: 01/13/19 10:01 Dose: 30 mg Montelukast Sodium (Singulair) 10 mg PO HS [facility] Last Admin: 01/12/19 21:21 Dose: 10 mg - Labs Labs: 01/10/19 05:20 01/10/19 05:20 PT 12.3 SECONDS (9.4-12.5) 01/10/19 05:20 INR 1.09 01/10/19 05:20 APTT 36.1 Seconds (26.9-38.3) 01/10/19 05:20 - Constitutional Appears: No Acute Distress - Head Exam Head Exam: ATRAUMATIC, NORMAL INSPECTION, NORMOCEPHALIC - Eye Exam Eye Exam: EOMI, Normal appearance, PERRL. absent: Scleral icterus Pupil Exam: NORMAL ACCOMODATION - ENT Exam ENT Exam: Mucous Membranes Moist - Neck Exam Neck Exam: Normal Inspection. absent: Lymphadenopathy, Meningismus, Tenderness, Thyromegaly - Respiratory Exam Respiratory Exam: Wheezes (diffusely.), NORMAL BREATHING PATTERN. absent: Clear to Ausculation Bilateral, Prolonged Expiratory Phase, Rales, Rhonchi, Respiratory Distress, Stridor - Cardiovascular Exam Cardiovascular Exam: REGULAR RHYTHM, RRR, +S1, +S2. absent: Bradycardia, Tachycardia, Diastolic murmur, Gallop, JVD, Rubs, Murmur - GI/Abdominal Exam GI & Abdominal Exam: Soft, Normal Bowel Sounds. absent: Distended, Firm, Guarding, Rigid, Tenderness, Hypoactive Bowel Sounds, Rebound - Extremities Exam Extremities Exam: Normal Inspection - Back Exam Back Exam: NORMAL INSPECTION - Neurological Exam Neurological Exam: Alert, Awake, Oriented x3 - Psychiatric Exam Psychiatric exam: Normal Affect, Normal Mood - Skin Skin Exam: Dry, Normal Color, Warm Assessment and Plan - Assessment and Plan (Free Text) Assessment: 1) Acute bronchitis 2) COPD 3) Asthma 4) Solitary pulmonary nodule. 5) Anxiety Plan: Since admission, patient had chest x-ray which was normal. Patient is being followed by sales and leasing agent. Patient is on duoneb prn and standing dose for the bronchitis. Also on pulmocort, singulair. On tapering dose solumedrol, currently 30 mg q12. Continue with claritrin for sinusitis, and capachol for sore throat. Xanax prn for anxiety. External compressive device for DVT prophylaxis. On Pepcid for gi prophylaxis. Patient seen, examined and case discussed with Dr. Baldwin. <Papi Baldwin - Last Filed: 01/13/19 19:50> Objective - Vital Signs/Intake and Output Vital Signs (last 24 hours): Temp Pulse Resp BP Pulse Ox 98.6 F 76 20 115/71 92 L 01/13/19 14:00 01/13/19 14:00 01/13/19 14:00 01/13/19 14:00 01/13/19 14:00 - Medications Medications: Current Medications Albuterol/Ipratropium (Duoneb 3 Mg/0.5 Mg (3 Ml) Ud) 3 ml IH [id number] [facility] Last Admin: 01/13/19 19:24 Dose: 3 ml Albuterol/Ipratropium (Duoneb 3 Mg/0.5 Mg (3 Ml) Ud) 3 ml IH Q2H PRN PRN Reason: Shortness of Breath Last Admin: 01/10/19 20:17 Dose: 3 ml Alprazolam (Xanax) 0.25 mg PO BID PRN; Protocol PRN Reason: Anxiety Stop: 01/17/19 18:01 Benzocaine/Menthol (Cepacol Sore Throat) 1 yvon MT Q2H PRN PRN Reason: Sore Throat Last Admin: 01/13/19 17:48 Dose: 1 yvon Budesonide (Pulmicort Respules) 0.5 mg IH [id number] [facility] Last Admin: 01/13/19 19:24 Dose: 0.5 mg Famotidine (Pepcid) 20 mg PO DAILY [facility] Last Admin: 01/13/19 10:01 Dose: 20 mg Fluticasone Propionate (Flonase) 1 actuation NS DAILY [facility] Last Admin: 01/13/19 10:01 Dose: 1 spray Loratadine (Claritin) 10 mg PO DAILY [facility] Last Admin: 01/13/19 10:01 Dose: 10 mg Methylprednisolone (Solu-Medrol) 30 mg IVP Q12 [facility] Last Admin: 01/13/19 10:01 Dose: 30 mg Montelukast Sodium (Singulair) 10 mg PO HS [facility] Last Admin: 01/12/19 21:21 Dose: 10 mg - Labs Labs: 01/10/19 05:20 01/10/19 05:20 PT 12.3 SECONDS (9.4-12.5) 01/10/19 05:20 INR 1.09 01/10/19 05:20 APTT 36.1 Seconds (26.9-38.3) 01/10/19 05:20 Assessment and Plan - Assessment and Plan (Free Text) Plan: Pt seen and examined by me. I have reviewed the note of the medical technologist blood bank and I agree with it. I have discussed the assessment and plan with the resident. I have reviewed the medications and the last labs.
--- NOTE | 2019-01-13 11:11 | CP.PCM.PCO ---
Physician Communication Note - Physician Communication Note Physician Communication Note: Im and Pul recs notes- plans to convert to p.o steriod in am- will follow Additional Comments - Additional Comments Additional Comments: pt still complains of cough and postnasal drip
--- NOTE | 2019-01-14 00:02 | PN ---
DATE: 01/13/2019 The patient was seen and examined. I do agree with the note of the spanish medical interpreter. I was involved in the plan of care. This is coverage for Dr. Moulton. The patient was admitted because of an acute asthma exacerbation. She is currently feeling better, but continues to have a cough with wheezing. The patient had a solitary nodule. She had been followed by Pulmonary. I do appreciate Dr. Springer's input. The patient also has anxiety. The patient states that her anxiety is currently under control. She is on her inhalers with Pulmicort. She is on Flonase. She is receiving Xanax as needed. She is on Solu-Medrol for steroids. She is able to ambulate. We will continue to follow the patient and discharge the patient home. Papi Baldwin MD
[2019-01-14] MEDS: Albuterol-Ipratrop 3 mg / 0.5 (3 ml) UD IH SCH ×4 (01:13→20:47)
[2019-01-14] MEDS: Budesonide 0.5 mg/2 ml Inhal Susp UD IH SCH ×2 (07:56→20:47)
[2019-01-14] MEDS: MethylPREDNISolone 40 mg Vial IVP SCH ×2 (09:36→22:33)
[2019-01-14] MEDS: Fluticasone Nasal 50 mcg/Spray NS SCH (09:38)
--- NOTE | 2019-01-14 10:01 | PN ---
DATE: 01/14/2019 SUBJECTIVE: The patient has no complaints of any chest pain. She says she does get cough spells. She does get shortness of breath when she ambulates. PHYSICAL EXAMINATION: VITAL SIGNS: Temperature is 98.3, pulse is 79, blood pressure 102/56 and respirations 20. GENERAL: The patient is lying in bed, flat, comfortable. HEENT: No oral lesion. Anicteric sclerae. Moist mucosa. NECK: No JVD, adenopathy, or thyromegaly. CARDIOVASCULAR: S1 and S2, regular. No murmurs, rubs, or gallops. LUNGS: Good bilateral air entry, mild wheezing. No rales or rhonchi. ABDOMEN: Bowel sounds are positive, soft, nontender and nondistended. EXTREMITIES: No cyanosis, clubbing or edema. LABORATORY DATA: White count of 10.4 and hemoglobin 15. Creatinine 0.6. ASSESSMENT: 1. Acute asthma. 2. Acute bronchitis. 3. Pulmonary nodules solitary. 4. Anxiety. PLAN: The patient is currently improving. She is continuing her Solu-Medrol. She is being followed by pulmonary. She is on Xanax for her anxiety. The patient is on nebulizer treatment. She is on loratadine. The patient is on a heart healthy diet. Papi Baldwin MD
[2019-01-14] MEDS: POLYETHYLENE GLYCOL 3350 17 GM/Dose PACKET PO SCH ×2 (10:59→17:21)
[2019-01-14] MEDS: Benzocaine/Menthol (Cepacol) Lozenge MT PRN ×2 (16:16→22:39)
[2019-01-14] MEDS: guaiFENesin 600 mg ER Tab PO SCH (17:21)
[2019-01-14 22:13] VITALS: RESP 18
[2019-01-15] MEDS: Albuterol-Ipratrop 3 mg / 0.5 (3 ml) UD IH SCH ×3 (01:59→13:27)
[2019-01-15] MEDS: Budesonide 0.5 mg/2 ml Inhal Susp UD IH SCH (07:27)
[2019-01-15 08:02] VITALS: BP 109/61; PULSE 76; TEMP 98.3; O2SAT 95
[2019-01-15] MEDS: POLYETHYLENE GLYCOL 3350 17 GM/Dose PACKET PO SCH (09:01)
[2019-01-15] MEDS: MethylPREDNISolone 40 mg Vial IVP SCH (09:02)
[2019-01-15] MEDS: Fluticasone Nasal 50 mcg/Spray NS SCH (09:03)
[2019-01-15] MEDS: guaiFENesin 600 mg ER Tab PO SCH (09:03)
[2019-01-15] MEDS: Benzocaine/Menthol (Cepacol) Lozenge MT PRN (10:26)
--- NOTE | 2019-01-16 00:58 | DS ---
HISTORY OF PRESENT ILLNESS: The patient has no complaint of any chest pain, no shortness of breath. She says her breathing is much better. She was initially admitted to the hospital because of an acute asthma exacerbation. She was taking nebulizer treatment and Solu-Medrol. She says she is improved. She gets out of bed, ambulates better. She is comfortable on going home today. PHYSICAL EXAMINATION VITAL SIGNS: Temperature is 98.3, pulse is 76, blood pressure is 109/61, respiration is 18. GENERAL: The patient is lying in bed, flat, comfortable. HEENT: No oral lesion. Anicteric sclerae. Moist mucosa. NECK: No JVD, adenopathy, or thyromegaly. CARDIOVASCULAR: S1 and S2, regular. No murmurs, rubs, or gallops. LUNGS: Clear to auscultation bilaterally. No wheeze, rales, or rhonchi. ABDOMEN: Bowel sounds are positive, soft, nontender and nondistended. EXTREMITIES: No cyanosis, clubbing or edema. LABS: White count of 10.4, hemoglobin 15. Creatinine is 0.6. ASSESSMENT 1. Acute chronic obstructive pulmonary disease exacerbation. 2. Acute bronchitis. 3. Coronary nodule, solitary. 4. Anxiety. PLAN: The patient is getting some Solu-Medrol. She is on fluticasone. She is on nebulizer treatment. She is going to continue with her home medications. She is on Xanax as needed. She is on a heart-healthy diet. Papi Baldwin MD
--- NOTE | 2019-01-16 03:17 | PN ---
DATE: 01/15/2019 PULMONARY PROGRESS NOTE SUBJECTIVE: The patient is feeling much better today. She is ambulating in the room. She states that she is being discharged. She still has complaints of thick secretions that are clear. The Mucinex given yesterday has helped. PHYSICAL EXAMINATION: GENERAL: The patient is comfortable, in no acute distress. HEENT: Normocephalic, atraumatic. NECK: No jugular venous distention. CARDIOVASCULAR: Regular rhythm, S1 and S2. Without murmur, gallop or rub. LUNGS: Minimal rhonchi throughout, but no wheezing. Lungs are clear today than yesterday. GASTROINTESTINAL: Soft. Bowel sounds normoactive. Without mass, guarding, rebound or organomegaly. : Within normal limits EXTREMITIES: Reveal no clubbing, cyanosis or edema. SKIN: Dry; intact IMPRESSION: 1. Status post acute bronchitis. 2. Chronic obstructive pulmonary disease. 3. Mucus inspissation. 4. Bronchial asthma. 5. Solitary pulmonary nodule. 6. Acute sinusitis. PLAN: Continue vigorous therapy with Mucinex. The patient will be discharged later today. I have asked her to see me in the office next week to go over her medications and make sure that she is in the best possible condition. We will follow closely with you and decide on the need for further intervention as an outpatient. Roberto Breaux MD MTDD
--- NOTE | 2019-01-16 09:27 | PN ---
DATE: 01/14/2019 PULMONARY PROGRESS NOTE SUBJECTIVE: The patient, although feeling better, still has major complaints of shortness of breath on exertion and thick secretions. PHYSICAL EXAMINATION: VITAL SIGNS: Remain stable. She is afebrile. Heart rate is 72, blood pressure 120/70, O2 sat 96%. HEENT: Normocephalic, atraumatic. NECK: No JVD. No lymphadenopathy. CARDIOVASCULAR: Regular rhythm, S1 and S2. Without murmur, gallop or rub. LUNGS: Global rhonchi noted throughout. No wheezing at this time. Global decrease in breath sounds. GASTROINTESTINAL: Soft. Bowel sounds normoactive. Without mass, guarding, rebound or organomegaly. : Within normal limits EXTREMITIES: Reveal no clubbing, cyanosis or edema. Calves reveal no Homans sign. SKIN: Dry; intact. CLINICAL IMPRESSION: 1. Bronchitis. 2. Chronic obstructive pulmonary disease, status post exacerbation. 3. Asthma. 4. Pulmonary nodule. 5. Sinusitis. 6. Significant secretion load as of chronic bronchitis. PLAN: The patient needs to continue with vigorous therapy. Her shortness of breath is out of proportion with the amount of COPD that she has. I strongly suggest that she have a cardiac evaluation to make sure that there are no other problems involved. We will do echocardiogram at this time pending cardiology evaluation for concomitant coronary artery disease or other cardiac illness. We will follow closely with you. Roberto Breaux MD MTDSandra
== END 2019-01-15 14:54 | disposition home or self-care (01) | DRG 191 ==
LOC: ED 05:05 → ERH 06:40 → 2RNO 09:07 → OBSVTOIN 01-11 12:11 → 5RSO 01-11 16:21
PROVIDERS: ADMIT Internal Medicine; ATTEND Internal Medicine
PROC: 3E0F7GC Introduction of Other Therapeutic Substance into Respiratory Tract, Via Natural or Artificial Opening (ICD-10-PCS; principal; 2019-01-10)
DX: J44.1 Chronic obstructive pulmonary disease with (acute) exacerbation (principal); J45.901 Unspecified asthma with (acute) exacerbation; J44.0 Chronic obstructive pulmonary disease with (acute) lower respiratory infection; J20.9 Acute bronchitis, unspecified; F41.9 Anxiety disorder, unspecified; I10 Essential (primary) hypertension; R91.1 Solitary pulmonary nodule; Z86.19 Personal history of other infectious and parasitic diseases